=== PATIENT | female | born 1960 | race Caucasian/White ===

== ENCOUNTER 2017-10-04 00:09 | Day surgery (SDC) | payer OTHER ==
[~2017-10-04 00:09] MED LIST: AMOCLA875 PO; AMOX500 PO; ASPI81CH; BASAGLAR K100 UNIT/1 SC; Bactrim 400-801 EACH PO; Bactrim Ds Tab1 EACH PO; CEPH500 PO; CIPR500 PO; CLIN300 PO; CLOP75 PO; FURO20 PO; GLIP2.5ER; GLIP5 PO; HYDACE5 PO; HYDR1TAB94; INSULANI SC; INSULANPEN; INSULANPEN SC; LISI10; METF500; METF500 PO; NITR100 PO; Novolog Fl100 UNIT/1; PRAV10 PO; ROSI4; RXCEPH500 PO; RXHYDACE PO; SULTRIDS PO
[2018-08-30] MEDS ORDERED: PANT40 (12:44)
[2018-08-30] MEDS ORDERED: Keflex500 MG PO (15:29)
[2018-08-30] MEDS ORDERED: Bactrim Ds Tab1 EACH PO (15:29)
[2018-09-16] MEDS ORDERED: Bactrim Ds Tab1 EACH PO (18:39)
[2018-09-16] MEDS ORDERED: CEPH500 PO (18:39)
== END 2017-10-04 13:47 | disposition home or self-care (01) ==
LOC: HBO 00:09
DX: Z48.00 Encounter for change or removal of nonsurgical wound dressing (principal); E11.621 Type 2 diabetes mellitus with foot ulcer; L89.623 Pressure ulcer of left heel, stage 3; L97.512 Non-pressure chronic ulcer of other part of right foot with fat layer exposed; E11.40 Type 2 diabetes mellitus with diabetic neuropathy, unspecified; I10 Essential (primary) hypertension
CPT/HCPCS: 82947; G0277

== ENCOUNTER 2017-10-05 09:44 | Day surgery (SDC) | payer OTHER ==
[2018-08-30] MEDS ORDERED: PANT40 (12:44)
[2018-08-30] MEDS ORDERED: Keflex500 MG PO (15:29)
[2018-08-30] MEDS ORDERED: Bactrim Ds Tab1 EACH PO (15:29)
[2018-09-16] MEDS ORDERED: CEPH500 PO (18:39)
[2018-09-16] MEDS ORDERED: Bactrim Ds Tab1 EACH PO (18:39)
== END 2017-10-05 22:38 | disposition home or self-care (01) ==
LOC: HBO 09:44
PROC: 5A05221 Extracorporeal Hyperbaric Oxygenation, Continuous (ICD-10-PCS; principal; 2017-10-05)
DX: Z48.00 Encounter for change or removal of nonsurgical wound dressing (principal); E11.621 Type 2 diabetes mellitus with foot ulcer; E11.40 Type 2 diabetes mellitus with diabetic neuropathy, unspecified; L89.623 Pressure ulcer of left heel, stage 3; I10 Essential (primary) hypertension; L97.512 Non-pressure chronic ulcer of other part of right foot with fat layer exposed
CPT/HCPCS: 82947; G0277

== ENCOUNTER 2017-10-06 00:28 | Day surgery (SDC) | payer OTHER ==
[2018-08-30] MEDS ORDERED: PANT40 (12:44)
[2018-08-30] MEDS ORDERED: Bactrim Ds Tab1 EACH PO (15:29)
[2018-08-30] MEDS ORDERED: Keflex500 MG PO (15:29)
[2018-09-16] MEDS ORDERED: CEPH500 PO (18:39)
[2018-09-16] MEDS ORDERED: Bactrim Ds Tab1 EACH PO (18:39)
== END 2017-10-06 23:10 | disposition home or self-care (01) ==
LOC: HBO 00:28
PROC: 5A05221 Extracorporeal Hyperbaric Oxygenation, Continuous (ICD-10-PCS; principal; 2017-10-06)
DX: Z48.00 Encounter for change or removal of nonsurgical wound dressing (principal); E11.621 Type 2 diabetes mellitus with foot ulcer; E11.40 Type 2 diabetes mellitus with diabetic neuropathy, unspecified; L97.512 Non-pressure chronic ulcer of other part of right foot with fat layer exposed; L89.623 Pressure ulcer of left heel, stage 3; I10 Essential (primary) hypertension
CPT/HCPCS: 82947; G0277

== ENCOUNTER 2017-10-10 08:40 | Day surgery (SDC) | payer OTHER ==
[2018-08-30] MEDS ORDERED: PANT40 (12:44)
[2018-08-30] MEDS ORDERED: Keflex500 MG PO (15:29)
[2018-08-30] MEDS ORDERED: Bactrim Ds Tab1 EACH PO (15:29)
[2018-09-16] MEDS ORDERED: Bactrim Ds Tab1 EACH PO (18:39)
[2018-09-16] MEDS ORDERED: CEPH500 PO (18:39)
== END 2017-10-10 15:13 | disposition home or self-care (01) ==
LOC: WOUND 08:40
PROC: 0HBNXZZ Excision of Left Foot Skin, External Approach (ICD-10-PCS; principal; 2017-10-10)
DX: Z48.00 Encounter for change or removal of nonsurgical wound dressing (principal); E11.621 Type 2 diabetes mellitus with foot ulcer; L97.422 Non-pressure chronic ulcer of left heel and midfoot with fat layer exposed; L57.0 Actinic keratosis; E11.40 Type 2 diabetes mellitus with diabetic neuropathy, unspecified; I10 Essential (primary) hypertension; Z89.422 Acquired absence of other left toe(s); Z79.4 Long term (current) use of insulin
CPT/HCPCS: 82947; G0463

== ENCOUNTER 2017-10-10 11:21 | Day surgery (SDC) | payer OTHER ==
[2018-08-30] MEDS ORDERED: PANT40 (12:44)
[2018-08-30] MEDS ORDERED: Bactrim Ds Tab1 EACH PO (15:29)
[2018-08-30] MEDS ORDERED: Keflex500 MG PO (15:29)
[2018-09-16] MEDS ORDERED: Bactrim Ds Tab1 EACH PO (18:39)
[2018-09-16] MEDS ORDERED: CEPH500 PO (18:39)
== END 2017-10-10 13:19 | disposition home or self-care (01) ==
LOC: HBO 11:21
DX: Z48.00 Encounter for change or removal of nonsurgical wound dressing (principal); E08.40 Diabetes mellitus due to underlying condition with diabetic neuropathy, unspecified; L89.623 Pressure ulcer of left heel, stage 3; I10 Essential (primary) hypertension; L97.512 Non-pressure chronic ulcer of other part of right foot with fat layer exposed
CPT/HCPCS: 82947; G0277

== ENCOUNTER 2017-10-12 08:00 | Day surgery (SDC) | payer OTHER ==
[2018-08-30] MEDS ORDERED: PANT40 (12:44)
[2018-08-30] MEDS ORDERED: Keflex500 MG PO (15:29)
[2018-08-30] MEDS ORDERED: Bactrim Ds Tab1 EACH PO (15:29)
[2018-09-16] MEDS ORDERED: Bactrim Ds Tab1 EACH PO (18:39)
[2018-09-16] MEDS ORDERED: CEPH500 PO (18:39)
== END 2017-10-12 11:13 | disposition home or self-care (01) ==
LOC: HBO 08:00
DX: Z48.00 Encounter for change or removal of nonsurgical wound dressing (principal); E11.621 Type 2 diabetes mellitus with foot ulcer; L89.623 Pressure ulcer of left heel, stage 3; L97.512 Non-pressure chronic ulcer of other part of right foot with fat layer exposed; E11.40 Type 2 diabetes mellitus with diabetic neuropathy, unspecified; I10 Essential (primary) hypertension
CPT/HCPCS: 82947; G0277

== ENCOUNTER 2017-10-17 00:08 | Day surgery (SDC) | payer OTHER ==
[2018-08-30] MEDS ORDERED: PANT40 (12:44)
[2018-08-30] MEDS ORDERED: Bactrim Ds Tab1 EACH PO (15:29)
[2018-08-30] MEDS ORDERED: Keflex500 MG PO (15:29)
[2018-09-16] MEDS ORDERED: CEPH500 PO (18:39)
[2018-09-16] MEDS ORDERED: Bactrim Ds Tab1 EACH PO (18:39)
== END 2017-10-17 22:50 | disposition home or self-care (01) ==
LOC: HBO 00:08
PROC: 5A05221 Extracorporeal Hyperbaric Oxygenation, Continuous (ICD-10-PCS; principal; 2017-10-17)
DX: E11.621 Type 2 diabetes mellitus with foot ulcer (principal); E11.40 Type 2 diabetes mellitus with diabetic neuropathy, unspecified; L89.623 Pressure ulcer of left heel, stage 3; I10 Essential (primary) hypertension; L97.512 Non-pressure chronic ulcer of other part of right foot with fat layer exposed; Z48.00 Encounter for change or removal of nonsurgical wound dressing
CPT/HCPCS: 82947; G0277; G0463

== ENCOUNTER 2017-10-18 08:00 | Day surgery (SDC) | payer OTHER ==
[2018-08-30] MEDS ORDERED: PANT40 (12:44)
[2018-08-30] MEDS ORDERED: Bactrim Ds Tab1 EACH PO (15:29)
[2018-08-30] MEDS ORDERED: Keflex500 MG PO (15:29)
[2018-09-16] MEDS ORDERED: Bactrim Ds Tab1 EACH PO (18:39)
[2018-09-16] MEDS ORDERED: CEPH500 PO (18:39)
== END 2017-10-18 11:02 | disposition home or self-care (01) ==
LOC: HBO 08:00
PROC: 5A05221 Extracorporeal Hyperbaric Oxygenation, Continuous (ICD-10-PCS; principal; 2017-10-18)
DX: Z48.00 Encounter for change or removal of nonsurgical wound dressing (principal); E11.621 Type 2 diabetes mellitus with foot ulcer; E11.40 Type 2 diabetes mellitus with diabetic neuropathy, unspecified; L89.623 Pressure ulcer of left heel, stage 3; I10 Essential (primary) hypertension; L97.512 Non-pressure chronic ulcer of other part of right foot with fat layer exposed
CPT/HCPCS: 82947; G0277

== ENCOUNTER 2017-10-20 08:00 | Day surgery (SDC) | payer OTHER ==
[2018-08-30] MEDS ORDERED: PANT40 (12:44)
[2018-08-30] MEDS ORDERED: Bactrim Ds Tab1 EACH PO (15:29)
[2018-08-30] MEDS ORDERED: Keflex500 MG PO (15:29)
[2018-09-16] MEDS ORDERED: CEPH500 PO (18:39)
[2018-09-16] MEDS ORDERED: Bactrim Ds Tab1 EACH PO (18:39)
== END 2017-10-20 11:00 | disposition home or self-care (01) ==
LOC: HBO 08:00
PROC: 5A05221 Extracorporeal Hyperbaric Oxygenation, Continuous (ICD-10-PCS; principal; 2017-10-20)
DX: Z48.00 Encounter for change or removal of nonsurgical wound dressing (principal); E11.621 Type 2 diabetes mellitus with foot ulcer; E11.40 Type 2 diabetes mellitus with diabetic neuropathy, unspecified; L89.623 Pressure ulcer of left heel, stage 3; I10 Essential (primary) hypertension; L97.512 Non-pressure chronic ulcer of other part of right foot with fat layer exposed
CPT/HCPCS: 82947; G0277

== ENCOUNTER 2017-10-25 08:00 | Day surgery (SDC) | payer OTHER ==
[2018-08-30] MEDS ORDERED: PANT40 (12:44)
[2018-08-30] MEDS ORDERED: Bactrim Ds Tab1 EACH PO (15:29)
[2018-08-30] MEDS ORDERED: Keflex500 MG PO (15:29)
[2018-09-16] MEDS ORDERED: CEPH500 PO (18:39)
[2018-09-16] MEDS ORDERED: Bactrim Ds Tab1 EACH PO (18:39)
== END 2017-10-25 12:54 | disposition home or self-care (01) ==
LOC: HBO 08:00
PROC: 5A05221 Extracorporeal Hyperbaric Oxygenation, Continuous (ICD-10-PCS; principal; 2017-10-25)
DX: Z48.00 Encounter for change or removal of nonsurgical wound dressing (principal); E11.621 Type 2 diabetes mellitus with foot ulcer; E11.40 Type 2 diabetes mellitus with diabetic neuropathy, unspecified; L89.623 Pressure ulcer of left heel, stage 3; I10 Essential (primary) hypertension; L97.512 Non-pressure chronic ulcer of other part of right foot with fat layer exposed
CPT/HCPCS: 82947; G0277

== ENCOUNTER 2017-10-25 09:18 | Day surgery (SDC) | payer OTHER ==
[2018-08-30] MEDS ORDERED: PANT40 (12:44)
[2018-08-30] MEDS ORDERED: Keflex500 MG PO (15:29)
[2018-08-30] MEDS ORDERED: Bactrim Ds Tab1 EACH PO (15:29)
[2018-09-16] MEDS ORDERED: CEPH500 PO (18:39)
[2018-09-16] MEDS ORDERED: Bactrim Ds Tab1 EACH PO (18:39)
== END 2017-10-25 22:50 | disposition home or self-care (01) ==
LOC: WOUND 09:18
DX: Z48.00 Encounter for change or removal of nonsurgical wound dressing (principal); E11.621 Type 2 diabetes mellitus with foot ulcer; E11.40 Type 2 diabetes mellitus with diabetic neuropathy, unspecified; L89.623 Pressure ulcer of left heel, stage 3; I10 Essential (primary) hypertension; L97.512 Non-pressure chronic ulcer of other part of right foot with fat layer exposed
CPT/HCPCS: G0463

== ENCOUNTER 2017-10-27 08:00 | Day surgery (SDC) | payer OTHER ==
[2018-08-30] MEDS ORDERED: PANT40 (12:44)
[2018-08-30] MEDS ORDERED: Keflex500 MG PO (15:29)
[2018-08-30] MEDS ORDERED: Bactrim Ds Tab1 EACH PO (15:29)
[2018-09-16] MEDS ORDERED: Bactrim Ds Tab1 EACH PO (18:39)
[2018-09-16] MEDS ORDERED: CEPH500 PO (18:39)
== END 2017-10-27 11:41 | disposition home or self-care (01) ==
LOC: HBO 08:00
PROC: 5A05221 Extracorporeal Hyperbaric Oxygenation, Continuous (ICD-10-PCS; principal; 2017-10-27)
DX: Z48.00 Encounter for change or removal of nonsurgical wound dressing (principal); E11.621 Type 2 diabetes mellitus with foot ulcer; E11.40 Type 2 diabetes mellitus with diabetic neuropathy, unspecified; L89.623 Pressure ulcer of left heel, stage 3; I10 Essential (primary) hypertension; L97.512 Non-pressure chronic ulcer of other part of right foot with fat layer exposed
CPT/HCPCS: 82947; G0277

== ENCOUNTER 2017-11-01 07:35 | Day surgery (SDC) | payer OTHER ==
[2018-08-30] MEDS ORDERED: PANT40 (12:44)
[2018-08-30] MEDS ORDERED: Keflex500 MG PO (15:29)
[2018-08-30] MEDS ORDERED: Bactrim Ds Tab1 EACH PO (15:29)
[2018-09-16] MEDS ORDERED: Bactrim Ds Tab1 EACH PO (18:39)
[2018-09-16] MEDS ORDERED: CEPH500 PO (18:39)
== END 2017-11-01 23:01 | disposition home or self-care (01) ==
LOC: HBO 07:35
PROC: 5A05221 Extracorporeal Hyperbaric Oxygenation, Continuous (ICD-10-PCS; principal; 2017-11-01)
DX: Z48.00 Encounter for change or removal of nonsurgical wound dressing (principal); E11.621 Type 2 diabetes mellitus with foot ulcer; E11.40 Type 2 diabetes mellitus with diabetic neuropathy, unspecified; L89.623 Pressure ulcer of left heel, stage 3; I10 Essential (primary) hypertension; L97.512 Non-pressure chronic ulcer of other part of right foot with fat layer exposed
CPT/HCPCS: 82947; G0277

== ENCOUNTER 2017-11-02 10:05 | Day surgery (SDC) | payer OTHER ==
[2018-08-30] MEDS ORDERED: PANT40 (12:44)
[2018-08-30] MEDS ORDERED: Bactrim Ds Tab1 EACH PO (15:29)
[2018-08-30] MEDS ORDERED: Keflex500 MG PO (15:29)
[2018-09-16] MEDS ORDERED: CEPH500 PO (18:39)
[2018-09-16] MEDS ORDERED: Bactrim Ds Tab1 EACH PO (18:39)
== END 2017-11-02 12:53 | disposition home or self-care (01) ==
LOC: WOUND 10:05
PROC: 2W1TX6Z Compression of Left Foot using Pressure Dressing (ICD-10-PCS; principal; 2017-11-02)
DX: Z48.00 Encounter for change or removal of nonsurgical wound dressing (principal); E11.621 Type 2 diabetes mellitus with foot ulcer; E11.40 Type 2 diabetes mellitus with diabetic neuropathy, unspecified; I10 Essential (primary) hypertension; L97.512 Non-pressure chronic ulcer of other part of right foot with fat layer exposed; Z79.4 Long term (current) use of insulin

== ENCOUNTER 2017-11-03 00:50 | Day surgery (SDC) | payer OTHER ==
[2018-08-30] MEDS ORDERED: PANT40 (12:44)
[2018-08-30] MEDS ORDERED: Bactrim Ds Tab1 EACH PO (15:29)
[2018-08-30] MEDS ORDERED: Keflex500 MG PO (15:29)
[2018-09-16] MEDS ORDERED: CEPH500 PO (18:39)
[2018-09-16] MEDS ORDERED: Bactrim Ds Tab1 EACH PO (18:39)
== END 2017-11-03 22:43 | disposition home or self-care (01) ==
LOC: HBO 00:50
PROC: 5A05221 Extracorporeal Hyperbaric Oxygenation, Continuous (ICD-10-PCS; principal; 2017-11-03)
DX: Z48.00 Encounter for change or removal of nonsurgical wound dressing (principal); E11.621 Type 2 diabetes mellitus with foot ulcer; E11.40 Type 2 diabetes mellitus with diabetic neuropathy, unspecified; L89.623 Pressure ulcer of left heel, stage 3; I10 Essential (primary) hypertension; L97.512 Non-pressure chronic ulcer of other part of right foot with fat layer exposed
CPT/HCPCS: 82947; G0277

== ENCOUNTER 2017-11-14 15:58 | Inpatient (IN) | payer OTHER ==
[~2017-11-14] VITALS: Ht 177.8 cm; Wt 98.7 kg
[2017-11-14 17:17] LABS: BASOPHILS ABSOLUTE AUTO 0.04 K/mm3 (0.00-0.23); BASOPHILS PERCENT AUTO 0 % (0-2); EOSINOPHILS ABSOLUTE AUTO 0.12 K/mm3 (0.00-0.68); EOSINOPHILS PERCENT AUTO 1 % (0-6); Hematocrit 39.5 % (33.0-51.0); Hemoglobin 12.1 g/dL (11.5-16.0); IMMATURE GRAN ABSOLUTE AUTO 0.03 K/mm3 (0.00-0.10); IMMATURE GRAN PERCENT AUTO 0 % (0-1); LYMPHOCYTES ABSOLUTE AUTO 2.87 K/mm3 (0.84-5.20); LYMPHOCYTES PERCENT AUTO 23 % (21-46); MONOCYTES ABSOLUTE AUTO 0.62 K/mm3 (0.16-1.47); MONOCYTES PERCENT AUTO 5 % (4-13); Mean Corpuscular HGB 25.2 pg (26.0-34.0); Mean Corpuscular HGB Conc 30.6 g/dL (31.5-36.5); Mean Corpuscular Volume 82 fL (80-100); Mean Platelet Volume 8.6 fL (9.1-12.4); NEUTROPHILS ABSOLUTE AUTO 8.58 K/mm3 (1.96-9.15); NEUTROPHILS PERCENT AUTO 70 % (41-73); Platelet Count 424 K/mm3 (150-400); RDW Coefficient Variation 15.5 % (11.7-14.2); RDW Standard Deviation 46.6 fL (35.1-46.3); White Blood Cell Count 12.26 K/mm3 (4.00-11.30)
[2017-11-14 17:41] LABS: Alanine Aminotransfer (ALT/SGP 25 U/L (12-78); Albumin, Blood 3.5 g/dL (3.4-5.0); Albumin/Globulin Ratio 0.6 (0.8-1.8); Alk Phos 80 U/L (50-136); Anion Gap 8 mmol/L (6-16); Aspartate Aminotrans (AST/SGOT 19 U/L (12-37); Bilirubin, Total 0.4 mg/dL (0.1-1.0); Blood Urea Nitrogen 16 mg/dL (8-24); Bun/Creatinine Ratio 17.4 (12.0-20.0); CO2, Blood 29 mmol/L (21-32); Calcium, Blood 10.1 mg/dL (8.5-10.1); Chloride, Blood 99 mmol/L (98-108); Creatinine, Blood 0.92 mg/dL (0.40-1.00); Globulin, Blood 5.8 g/dL (2.2-4.0); Glomerular Filtration Rate >60 (60-); Glucose, Blood 110 mg/dL (70-99); Potassium, Blood 3.8 mmol/L (3.5-5.5); Sodium, Blood 136 mmol/L (136-145); Total Protein, Blood 9.3 g/dL (6.4-8.2)
[2017-11-14] MEDS ORDERED: [UNRECOGNIZED DRUG - CODE] SC (18:49)
[2017-11-16 05:28] LABS: BASOPHILS ABSOLUTE AUTO 0.05 K/mm3 (0.00-0.23); BASOPHILS PERCENT AUTO 1 % (0-2); EOSINOPHILS ABSOLUTE AUTO 0.29 K/mm3 (0.00-0.68); EOSINOPHILS PERCENT AUTO 4 % (0-6); Hematocrit 33.5 % (33.0-51.0); Hemoglobin 10.1 g/dL (11.5-16.0); IMMATURE GRAN ABSOLUTE AUTO 0.01 K/mm3 (0.00-0.10); IMMATURE GRAN PERCENT AUTO 0 % (0-1); LYMPHOCYTES ABSOLUTE AUTO 2.33 K/mm3 (0.84-5.20); LYMPHOCYTES PERCENT AUTO 33 % (21-46); MONOCYTES ABSOLUTE AUTO 0.42 K/mm3 (0.16-1.47); MONOCYTES PERCENT AUTO 6 % (4-13); Mean Corpuscular HGB 25.3 pg (26.0-34.0); Mean Corpuscular HGB Conc 30.1 g/dL (31.5-36.5); Mean Corpuscular Volume 84 fL (80-100); Mean Platelet Volume 8.7 fL (9.1-12.4); NEUTROPHILS ABSOLUTE AUTO 3.91 K/mm3 (1.96-9.15); NEUTROPHILS PERCENT AUTO 56 % (41-73); Platelet Count 320 K/mm3 (150-400); RDW Coefficient Variation 15.2 % (11.7-14.2); RDW Standard Deviation 46.5 fL (35.1-46.3); Red Blood Cell Count 3.99 M/mm3 (3.80-5.20); White Blood Cell Count 7.01 K/mm3 (4.00-11.30)
[2017-11-16 05:51] LABS: Anion Gap 7 mmol/L (6-16); Blood Urea Nitrogen 14 mg/dL (8-24); Bun/Creatinine Ratio 16.2 (12.0-20.0); CO2, Blood 27 mmol/L (21-32); Calcium, Blood 8.5 mg/dL (8.5-10.1); Chloride, Blood 107 mmol/L (98-108); Creatinine, Blood 0.87 mg/dL (0.40-1.00); Glomerular Filtration Rate >60 (60-); Glucose, Blood 101 mg/dL (70-99); Potassium, Blood 3.8 mmol/L (3.5-5.5); Sodium, Blood 141 mmol/L (136-145)
[2017-11-16 07:54] LABS: Vancomycin, Trough 15.4 ug/mL (5.0-10.0)
[2017-11-17 05:15] LABS: BASOPHILS ABSOLUTE AUTO 0.04 K/mm3 (0.00-0.23); BASOPHILS PERCENT AUTO 0 % (0-2); EOSINOPHILS ABSOLUTE AUTO 0.03 K/mm3 (0.00-0.68); EOSINOPHILS PERCENT AUTO 0 % (0-6); Hematocrit 28.6 % (33.0-51.0); Hemoglobin 8.6 g/dL (11.5-16.0); IMMATURE GRAN ABSOLUTE AUTO 0.04 K/mm3 (0.00-0.10); IMMATURE GRAN PERCENT AUTO 0 % (0-1); LYMPHOCYTES ABSOLUTE AUTO 2.23 K/mm3 (0.84-5.20); LYMPHOCYTES PERCENT AUTO 25 % (21-46); MONOCYTES ABSOLUTE AUTO 0.75 K/mm3 (0.16-1.47); MONOCYTES PERCENT AUTO 8 % (4-13); Mean Corpuscular HGB 25.3 pg (26.0-34.0); Mean Corpuscular HGB Conc 30.1 g/dL (31.5-36.5); Mean Corpuscular Volume 84 fL (80-100); Mean Platelet Volume 8.3 fL (9.1-12.4); NEUTROPHILS ABSOLUTE AUTO 5.94 K/mm3 (1.96-9.15); NEUTROPHILS PERCENT AUTO 66 % (41-73); Platelet Count 300 K/mm3 (150-400); RDW Coefficient Variation 14.8 % (11.7-14.2); RDW Standard Deviation 45.7 fL (35.1-46.3); White Blood Cell Count 9.03 K/mm3 (4.00-11.30)
[2017-11-18 07:24] LABS: BASOPHILS ABSOLUTE AUTO 0.03 K/mm3 (0.00-0.23); BASOPHILS PERCENT AUTO 0 % (0-2); EOSINOPHILS ABSOLUTE AUTO 0.15 K/mm3 (0.00-0.68); EOSINOPHILS PERCENT AUTO 2 % (0-6); Hematocrit 25.8 % (33.0-51.0); Hemoglobin 7.8 g/dL (11.5-16.0); IMMATURE GRAN ABSOLUTE AUTO 0.02 K/mm3 (0.00-0.10); IMMATURE GRAN PERCENT AUTO 0 % (0-1); LYMPHOCYTES ABSOLUTE AUTO 2.05 K/mm3 (0.84-5.20); LYMPHOCYTES PERCENT AUTO 25 % (21-46); MONOCYTES ABSOLUTE AUTO 0.76 K/mm3 (0.16-1.47); MONOCYTES PERCENT AUTO 9 % (4-13); Mean Corpuscular HGB 25.2 pg (26.0-34.0); Mean Corpuscular HGB Conc 30.2 g/dL (31.5-36.5); Mean Corpuscular Volume 84 fL (80-100); Mean Platelet Volume 8.6 fL (9.1-12.4); NEUTROPHILS ABSOLUTE AUTO 5.08 K/mm3 (1.96-9.15); NEUTROPHILS PERCENT AUTO 63 % (41-73); Platelet Count 260 K/mm3 (150-400); RDW Coefficient Variation 14.9 % (11.7-14.2); RDW Standard Deviation 45.5 fL (35.1-46.3); Red Blood Cell Count 3.09 M/mm3 (3.80-5.20); White Blood Cell Count 8.09 K/mm3 (4.00-11.30)
[2017-11-18 07:42] LABS: Vancomycin, Trough 13.5 ug/mL (5.0-10.0)
[2017-11-18 07:44] LABS: Anion Gap 6 mmol/L (6-16); Blood Urea Nitrogen 7 mg/dL (8-24); Bun/Creatinine Ratio 8.8 (12.0-20.0); CO2, Blood 31 mmol/L (21-32); Chloride, Blood 102 mmol/L (98-108); Glomerular Filtration Rate >60 (60-); Glucose, Blood 91 mg/dL (70-99); Potassium, Blood 3.4 mmol/L (3.5-5.5); Sodium, Blood 139 mmol/L (136-145)
[2017-11-19 05:47] LABS: BASOPHILS ABSOLUTE AUTO 0.03 K/mm3 (0.00-0.23); BASOPHILS PERCENT AUTO 0 % (0-2); EOSINOPHILS ABSOLUTE AUTO 0.21 K/mm3 (0.00-0.68); EOSINOPHILS PERCENT AUTO 3 % (0-6); Hematocrit 24.4 % (33.0-51.0); Hemoglobin 7.3 g/dL (11.5-16.0); IMMATURE GRAN ABSOLUTE AUTO 0.01 K/mm3 (0.00-0.10); IMMATURE GRAN PERCENT AUTO 0 % (0-1); LYMPHOCYTES ABSOLUTE AUTO 2.67 K/mm3 (0.84-5.20); LYMPHOCYTES PERCENT AUTO 36 % (21-46); MONOCYTES ABSOLUTE AUTO 0.56 K/mm3 (0.16-1.47); MONOCYTES PERCENT AUTO 7 % (4-13); Mean Corpuscular HGB 25.1 pg (26.0-34.0); Mean Corpuscular HGB Conc 29.9 g/dL (31.5-36.5); Mean Corpuscular Volume 84 fL (80-100); Mean Platelet Volume 8.6 fL (9.1-12.4); NEUTROPHILS ABSOLUTE AUTO 4.05 K/mm3 (1.96-9.15); NEUTROPHILS PERCENT AUTO 54 % (41-73); Platelet Count 254 K/mm3 (150-400); RDW Standard Deviation 45.5 fL (35.1-46.3); Red Blood Cell Count 2.91 M/mm3 (3.80-5.20); White Blood Cell Count 7.53 K/mm3 (4.00-11.30)
[2017-11-19 06:04] LABS: Anion Gap 5 mmol/L (6-16); Blood Urea Nitrogen 7 mg/dL (8-24); Bun/Creatinine Ratio 9.7 (12.0-20.0); CO2, Blood 32 mmol/L (21-32); Calcium, Blood 8.2 mg/dL (8.5-10.1); Chloride, Blood 102 mmol/L (98-108); Creatinine, Blood 0.72 mg/dL (0.40-1.00); Glomerular Filtration Rate >60 (60-); Glucose, Blood 55 mg/dL (70-99); Potassium, Blood 3.4 mmol/L (3.5-5.5); Sodium, Blood 139 mmol/L (136-145)
[2017-11-20 04:58] LABS: BASOPHILS ABSOLUTE AUTO 0.04 K/mm3 (0.00-0.23); BASOPHILS PERCENT AUTO 1 % (0-2); EOSINOPHILS ABSOLUTE AUTO 0.28 K/mm3 (0.00-0.68); EOSINOPHILS PERCENT AUTO 3 % (0-6); Hematocrit 24.4 % (33.0-51.0); Hemoglobin 7.4 g/dL (11.5-16.0); IMMATURE GRAN ABSOLUTE AUTO 0.03 K/mm3 (0.00-0.10); IMMATURE GRAN PERCENT AUTO 0 % (0-1); LYMPHOCYTES ABSOLUTE AUTO 1.98 K/mm3 (0.84-5.20); LYMPHOCYTES PERCENT AUTO 24 % (21-46); MONOCYTES ABSOLUTE AUTO 0.54 K/mm3 (0.16-1.47); MONOCYTES PERCENT AUTO 7 % (4-13); Mean Corpuscular HGB 25.3 pg (26.0-34.0); Mean Corpuscular HGB Conc 30.3 g/dL (31.5-36.5); Mean Corpuscular Volume 84 fL (80-100); Mean Platelet Volume 8.6 fL (9.1-12.4); NEUTROPHILS ABSOLUTE AUTO 5.44 K/mm3 (1.96-9.15); NEUTROPHILS PERCENT AUTO 65 % (41-73); Platelet Count 285 K/mm3 (150-400); RDW Coefficient Variation 14.9 % (11.7-14.2); RDW Standard Deviation 45.2 fL (35.1-46.3); Red Blood Cell Count 2.92 M/mm3 (3.80-5.20); White Blood Cell Count 8.31 K/mm3 (4.00-11.30)
[2017-11-20 05:18] LABS: Anion Gap 6 mmol/L (6-16); Blood Urea Nitrogen 6 mg/dL (8-24); Bun/Creatinine Ratio 8.4 (12.0-20.0); CO2, Blood 31 mmol/L (21-32); Calcium, Blood 8.2 mg/dL (8.5-10.1); Chloride, Blood 102 mmol/L (98-108); Creatinine, Blood 0.71 mg/dL (0.40-1.00); Glomerular Filtration Rate >60 (60-); Glucose, Blood 142 mg/dL (70-99); Potassium, Blood 3.8 mmol/L (3.5-5.5); Sodium, Blood 139 mmol/L (136-145)
[2017-11-21] MEDS ORDERED: Diastat2.5 MG PO (10:56)
[2017-11-21] MEDS ORDERED: ENOX40I SC (10:57)
[2017-11-21] MEDS ORDERED: DOCU100 PO (10:59)
[2017-11-21] MEDS ORDERED: FERRETTS325 MG PO (10:59)
[2017-11-21] MEDS ORDERED: ALBU3IS NEB (11:01)
[2017-11-21] MEDS ORDERED: LISI5 PO (11:02)
[2017-11-21] MEDS ORDERED: Milk Of Ma400 MG/5 M PO (11:02)
[2017-11-21] MEDS ORDERED: PANT40 PO (11:02)
[2017-11-21] MEDS ORDERED: Percocet 10-321 EACH PO (11:03)
[2017-11-21] MEDS ORDERED: K-Dur20 MEQ PO (11:04)
[2017-11-21] MEDS ORDERED: SENN187 PO (11:05)
[2017-11-21] MEDS ORDERED: MIRALAX17 GM PO (11:05)
[2017-11-21] MEDS ORDERED: Desyrel50 MG PO (11:06)
[2017-11-21 19:37] LABS: Vancomycin, Trough 17.2 ug/mL (5.0-10.0)
[2018-08-30] MEDS ORDERED: PANT40 (12:44)
[2018-08-30] MEDS ORDERED: Keflex500 MG PO (15:29)
[2018-08-30] MEDS ORDERED: Bactrim Ds Tab1 EACH PO (15:29)
[2018-09-16] MEDS ORDERED: CEPH500 PO (18:39)
[2018-09-16] MEDS ORDERED: Bactrim Ds Tab1 EACH PO (18:39)
== END 2017-11-22 12:19 | DRG 616 ==
LOC: ER 15:58 → MEDS 18:19 → ENPENDDIS 11-21 09:30 → MEDS 11-22 12:19
PROVIDERS: Family Medicine; Internal Medicine; Orthopaedic Surgery; Physician Assistant
PROC: 3E0234Z Introduction of Serum, Toxoid and Vaccine into Muscle, Percutaneous Approach (ICD-10-PCS; 2017-11-14)
PROC: 0Y6J0Z3 Detachment at Left Lower Leg, Low, Open Approach (ICD-10-PCS; principal; 2017-11-16 12:30)
DX: E11.69 Type 2 diabetes mellitus with other specified complication (principal); J96.01 Acute respiratory failure with hypoxia; M86.9 Osteomyelitis, unspecified; L03.116 Cellulitis of left lower limb; L02.612 Cutaneous abscess of left foot; E11.40 Type 2 diabetes mellitus with diabetic neuropathy, unspecified; E11.51 Type 2 diabetes mellitus with diabetic peripheral angiopathy without gangrene; E11.610 Type 2 diabetes mellitus with diabetic neuropathic arthropathy; Z23 Encounter for immunization; I10 Essential (primary) hypertension; E87.6 Hypokalemia; E66.9 Obesity, unspecified; K59.00 Constipation, unspecified; R09.02 Hypoxemia; Z68.31 Body mass index [BMI] 31.0-31.9, adult
CPT/HCPCS: 36415; 36416; 71260; 73590; 73630; 80048; 80053; 80202; 82947; 83036; 83605; 83735; 85025; 85379; 85651; 86140; 87070; 87075; 87076; 87077; 87147; 87186; 87205; 88307; 93005; 93010; 93970; 94640; 94760; 94761; 96365; 96367; 96368; 97110; 97162; 97530; 99285; G8978; G8979; J0295; J1170; J1650; J1815; J2250; J2270; J2274; J2405; J2765; J3010; J3370; J7030; J7050; J7120; Q9967

== ENCOUNTER 2018-01-18 08:40 | Day surgery (SDC) | payer OTHER ==
[~2018-01-18] VITALS: Ht 177.8 cm; Wt 99.8 kg
[~2018-01-18 08:40] MED LIST changes: +ALBU3IS NEB; +DOCU100 PO; +Desyrel50 MG PO; +Diastat2.5 MG PO; +ENOX40I SC; +FERRETTS325 MG PO; +K-Dur20 MEQ PO; +LISI5 PO; +MIRALAX17 GM PO; +Milk Of Ma400 MG/5 M PO; +PANT40 PO; +Percocet 10-321 EACH PO; +SENN187 PO; +[UNRECOGNIZED DRUG - CODE] SC
== END 2018-01-18 12:08 | disposition home or self-care (01) ==
LOC: ORSCMMR 08:40 → ORD 10:00 → ORSCMMR 10:00
PROVIDERS: Internal Medicine Gastroenterology
PROC: 0DJD8ZZ Inspection of Lower Intestinal Tract, Via Natural or Artificial Opening Endoscopic (ICD-10-PCS; principal; 2018-01-18 10:00)
DX: Z12.11 Encounter for screening for malignant neoplasm of colon (principal); Z86.010 Personal history of colon polyps; E11.9 Type 2 diabetes mellitus without complications; Z79.82 Long term (current) use of aspirin; Z79.4 Long term (current) use of insulin; Z79.899 Other long term (current) drug therapy; D64.9 Anemia, unspecified; I73.9 Peripheral vascular disease, unspecified
CPT/HCPCS: 82947; J7120

== ENCOUNTER → 2018-12-25 | Outpatient (CLI) | payer OTHER ==
[~2018-12-25] MED LIST changes: +Keflex500 MG PO; +PANT40
== END | disposition home or self-care (01) ==
LOC: LAB SHORT 09:12 → LAB 09:12
DX: L03.111 Cellulitis of right axilla (principal)
CPT/HCPCS: 87070; 87077; 87147; 87186; 87205

== ENCOUNTER 2019-03-26 09:52 | Inpatient (IN) | payer OTHER ==
[~2019-03-26] VITALS: Ht 177.8 cm; Wt 104.3 kg
[~2019-03-26 09:52] MED LIST changes: -ASPI81CH; +ASPI81CH PO
[2019-03-26 10:52] LABS: BASOPHILS ABSOLUTE AUTO 0.03 K/mm3 (0.00-0.23); BASOPHILS PERCENT AUTO 0 % (0-2); EOSINOPHILS ABSOLUTE AUTO 0.18 K/mm3 (0.00-0.68); EOSINOPHILS PERCENT AUTO 2 % (0-6); Hematocrit 41.1 % (33.0-51.0); Hemoglobin 12.4 g/dL (11.5-16.0); IMMATURE GRAN ABSOLUTE AUTO 0.03 K/mm3 (0.00-0.10); IMMATURE GRAN PERCENT AUTO 0 % (0-1); LYMPHOCYTES ABSOLUTE AUTO 1.68 K/mm3 (0.84-5.20); LYMPHOCYTES PERCENT AUTO 19 % (21-46); MONOCYTES PERCENT AUTO 6 % (4-13); Mean Corpuscular HGB 25.3 pg (26.0-34.0); Mean Corpuscular HGB Conc 30.2 g/dL (31.5-36.5); Mean Corpuscular Volume 84 fL (80-100); Mean Platelet Volume 8.8 fL (9.1-12.4); NEUTROPHILS ABSOLUTE AUTO 6.45 K/mm3 (1.96-9.15); NEUTROPHILS PERCENT AUTO 73 % (41-73); Platelet Count 356 K/mm3 (150-400); RDW Coefficient Variation 15.9 % (11.7-14.2); RDW Standard Deviation 47.8 fL (35.1-46.3); Red Blood Cell Count 4.91 M/mm3 (3.80-5.20); White Blood Cell Count 8.87 K/mm3 (4.00-11.30)
[2019-03-26 11:21] LABS: Alanine Aminotransfer (ALT/SGP 50 U/L (12-78); Albumin, Blood 3.6 g/dL (3.4-5.0); Albumin/Globulin Ratio 0.8 (0.8-1.8); Alk Phos 88 U/L (50-136); Anion Gap 6 mmol/L (6-16); Aspartate Aminotrans (AST/SGOT 40 U/L (12-37); Bilirubin, Total 0.3 mg/dL (0.1-1.0); Blood Urea Nitrogen 9 mg/dL (8-24); Bun/Creatinine Ratio 11.7 (12.0-20.0); CO2, Blood 27 mmol/L (21-32); Chloride, Blood 105 mmol/L (98-108); Creatinine, Blood 0.77 mg/dL (0.40-1.00); Globulin, Blood 4.8 g/dL (2.2-4.0); Glomerular Filtration Rate >60 (60-); Glucose, Blood 122 mg/dL (70-99); Sodium, Blood 138 mmol/L (136-145); Total Protein, Blood 8.4 g/dL (6.4-8.2)
[2019-03-26] MEDS ORDERED: MAGNESIUM250 MG PO (12:38)
[2019-03-26] MEDS ORDERED: FURO20 PO (12:38)
[2019-03-26] MEDS ORDERED: BASAGLAR K100 UNIT/1 SC (12:39)
[2019-03-26] MEDS ORDERED: Humalog Mi100 UNIT/4 SC (12:39)
[2019-03-26] MEDS ORDERED: Ferrous Sulfat325 M2 PO (12:39)
[2019-03-26] MEDS ORDERED: Hair, Skin & N1 EACH PO (12:40)
--- NOTE | 2019-03-26 17:40 | NUR ---
PATIENT ADMITTED FROM ER THIS SHIFT. SHE IS ALERT AND ORIENTED . PATIENT HAS DIABETIC ULCER TO PAD OF RIGHT FOOT. SHE IS A LEFT BKA. WOUND IS OPEN TO AIR. DOCTOR MAGGIE CONSULTED. PATIENT IS ABLE TO EXPRESS ANY NEEDS AND IS AWARE OF HER LIMITATIONS. REPORTS NO PAIN AT THIS TIME. CALL LIGHT WITHIN REACH.
--- NOTE | 2019-03-26 23:41 | NUR ---
PT DID NOT CALL NURSING FOR ASSIST TO BSC AND PUT WEIGHT ON RIGHT FOOT WHICH RESULTED IN BLEEDING TO PLANTAR SITE OF WOUND. THIS NURSE CLEANSED FOOT UP AND APPLIED NON ADHESIVE DRESSING WITH COBAN WRAP. PTS BED ALARM APPLIED.
[2019-03-27 05:03] LABS: BASOPHILS ABSOLUTE AUTO 0.04 K/mm3 (0.00-0.23); BASOPHILS PERCENT AUTO 1 % (0-2); EOSINOPHILS ABSOLUTE AUTO 0.26 K/mm3 (0.00-0.68); EOSINOPHILS PERCENT AUTO 4 % (0-6); Hematocrit 35.6 % (33.0-51.0); Hemoglobin 10.7 g/dL (11.5-16.0); IMMATURE GRAN ABSOLUTE AUTO 0.02 K/mm3 (0.00-0.10); IMMATURE GRAN PERCENT AUTO 0 % (0-1); LYMPHOCYTES ABSOLUTE AUTO 2.95 K/mm3 (0.84-5.20); LYMPHOCYTES PERCENT AUTO 40 % (21-46); MONOCYTES PERCENT AUTO 8 % (4-13); Mean Corpuscular HGB 25.3 pg (26.0-34.0); Mean Corpuscular HGB Conc 30.1 g/dL (31.5-36.5); Mean Corpuscular Volume 84 fL (80-100); Mean Platelet Volume 8.8 fL (9.1-12.4); NEUTROPHILS ABSOLUTE AUTO 3.44 K/mm3 (1.96-9.15); NEUTROPHILS PERCENT AUTO 47 % (41-73); Platelet Count 292 K/mm3 (150-400); RDW Coefficient Variation 15.9 % (11.7-14.2); Red Blood Cell Count 4.23 M/mm3 (3.80-5.20); White Blood Cell Count 7.31 K/mm3 (4.00-11.30)
[2019-03-27 05:25] LABS: Alanine Aminotransfer (ALT/SGP 37 U/L (12-78); Albumin, Blood 2.9 g/dL (3.4-5.0); Albumin/Globulin Ratio 0.7 (0.8-1.8); Alk Phos 69 U/L (50-136); Anion Gap 5 mmol/L (6-16); Aspartate Aminotrans (AST/SGOT 31 U/L (12-37); Bilirubin, Total 0.3 mg/dL (0.1-1.0); Blood Urea Nitrogen 9 mg/dL (8-24); Bun/Creatinine Ratio 10.1 (12.0-20.0); CO2, Blood 28 mmol/L (21-32); Calcium, Blood 8.6 mg/dL (8.5-10.1); Chloride, Blood 109 mmol/L (98-108); Creatinine, Blood 0.89 mg/dL (0.40-1.00); Globulin, Blood 4.1 g/dL (2.2-4.0); Glomerular Filtration Rate >60 (60-); Glucose, Blood 158 mg/dL (70-99); Magnesium, Blood 2.2 mg/dL (1.6-2.4); Potassium, Blood 4.1 mmol/L (3.5-5.5); Sodium, Blood 142 mmol/L (136-145)
--- NOTE | 2019-03-27 05:48 | NUR ---
SHIFT SUMMARY: PT RESTED COMFORTABLY ALL SHIFT. PTS RIGHT FOOT DRESSING DRY AND INTACT (APPLIED AFTER PATIENT BORE WEIGHT ON FOOT WITHOUT CALLING FOR NURSING ASSISTANCE--BED ALARM APPLIED REST OF NIGHT). PT ALERT AND ORIENTED X 4. PT ATE HS SNACK LAST NIGHT. PT VOICED THAT AT TIMES SHE IS NON COMPLIANT WITH FOLLOWING DIABETIC DIET AND EATS WHATS SHE DESIRES (PT TAUGHT NEED TO FOLLOW DIABETIC DIET WITH ACKNOWLEDGEMENT NOTED). PT MAINTAINED IN CONTACT PRECAUTIONS. PT DENIES PAIN OR NAUSEA. PTS BED LOW POSITION, CALL LIGHT AT SIDE.
--- NOTE | 2019-03-27 17:29 | NUR ---
SHIFT SUMMARY 1 PERSON ASSIST UP TO BSC OR W/C TO TRANSPORT IN TO BATHROOM FOR SHOWER THIS MORNING. REPORTED NO BM SINCE TUESDAY. SENNA GIVEN AND HAS HAD 3 BMS SINCE. DRESSING APPLIED AFTER SHOWER WITH SANTYL APPLIED TO WOUND BED PER DR. MAE ORDERS.
[2019-03-28 05:05] LABS: BASOPHILS ABSOLUTE AUTO 0.04 K/mm3 (0.00-0.23); BASOPHILS PERCENT AUTO 1 % (0-2); EOSINOPHILS ABSOLUTE AUTO 0.27 K/mm3 (0.00-0.68); EOSINOPHILS PERCENT AUTO 3 % (0-6); Hematocrit 34.7 % (33.0-51.0); Hemoglobin 10.5 g/dL (11.5-16.0); IMMATURE GRAN ABSOLUTE AUTO 0.03 K/mm3 (0.00-0.10); IMMATURE GRAN PERCENT AUTO 0 % (0-1); LYMPHOCYTES ABSOLUTE AUTO 2.68 K/mm3 (0.84-5.20); LYMPHOCYTES PERCENT AUTO 32 % (21-46); MONOCYTES ABSOLUTE AUTO 0.48 K/mm3 (0.16-1.47); MONOCYTES PERCENT AUTO 6 % (4-13); Mean Corpuscular HGB 24.7 pg (26.0-34.0); Mean Corpuscular HGB Conc 30.3 g/dL (31.5-36.5); Mean Corpuscular Volume 82 fL (80-100); NEUTROPHILS ABSOLUTE AUTO 4.84 K/mm3 (1.96-9.15); NEUTROPHILS PERCENT AUTO 58 % (41-73); Platelet Count 314 K/mm3 (150-400); RDW Coefficient Variation 15.9 % (11.7-14.2); RDW Standard Deviation 46.7 fL (35.1-46.3); Red Blood Cell Count 4.25 M/mm3 (3.80-5.20); White Blood Cell Count 8.34 K/mm3 (4.00-11.30)
[2019-03-28 05:26] LABS: Alanine Aminotransfer (ALT/SGP 33 U/L (12-78); Albumin, Blood 2.9 g/dL (3.4-5.0); Albumin/Globulin Ratio 0.7 (0.8-1.8); Alk Phos 70 U/L (50-136); Anion Gap 8 mmol/L (6-16); Aspartate Aminotrans (AST/SGOT 18 U/L (12-37); Bilirubin, Total 0.3 mg/dL (0.1-1.0); Blood Urea Nitrogen 12 mg/dL (8-24); Bun/Creatinine Ratio 13.3 (12.0-20.0); CO2, Blood 26 mmol/L (21-32); Calcium, Blood 8.7 mg/dL (8.5-10.1); Chloride, Blood 104 mmol/L (98-108); Creatinine, Blood 0.91 mg/dL (0.40-1.00); Glomerular Filtration Rate >60 (60-); Glucose, Blood 235 mg/dL (70-99); Sodium, Blood 138 mmol/L (136-145); Total Protein, Blood 6.9 g/dL (6.4-8.2)
--- NOTE | 2019-03-28 05:45 | NUR ---
FIELD INSTALLER SUMMARY NO ACUTE CHANGES THIS SHIFT. PT AAOX4 AND PLEASANT. DENIES PAIN. DRESSING ON R FOOT C/D/I. NEW IV PLACED ON LFA, RUNNING ABX. VSS, WILL CONTINUE TO MONITOR.
[2019-03-28] MEDS ORDERED: GLIP5 PO (15:34)
[2019-03-28] MEDS ORDERED: SANTYL30 GM TOP (15:37)
[2019-03-28] MEDS ORDERED: Cleocin HCl300 MG PO (15:38)
--- NOTE | 2019-03-28 16:31 | NUR ---
DISCHARGE INSTRCUCTIONS COMPLETED AND DISCUSSED WITH PT EXPRESSING UNDERSTANDING. SCRIPTS FAXED TO [facility]. TO [facility] VIA W/C.
== END 2019-03-28 16:29 | disposition home health service (06) | DRG 638 ==
LOC: ER 09:52 → ERHOLD 10:52 → MEDS 10:52
PROVIDERS: Emergency Medicine; ADMIT Internal Medicine
DX: E11.621 Type 2 diabetes mellitus with foot ulcer (principal); L03.115 Cellulitis of right lower limb; Z79.4 Long term (current) use of insulin; E11.51 Type 2 diabetes mellitus with diabetic peripheral angiopathy without gangrene; Z89.512 Acquired absence of left leg below knee; E78.5 Hyperlipidemia, unspecified; Z79.84 Long term (current) use of oral hypoglycemic drugs; A49.02 Methicillin resistant Staphylococcus aureus infection, unspecified site; E11.59 Type 2 diabetes mellitus with other circulatory complications; L97.511 Non-pressure chronic ulcer of other part of right foot limited to breakdown of skin
CPT/HCPCS: 36415; 73620; 80053; 82947; 83036; 83605; 83735; 85025; 87040; 87070; 87077; 87147; 87186; 87205; 99284-25; J1650; J2543; J3370; J7050

== ENCOUNTER 2019-05-13 10:26 | Emergency (ER) | payer OTHER ==
[~2019-05-13] VITALS: Ht 177.8 cm; Wt 104.3 kg
[~2019-05-13 10:26] MED LIST changes: +Cleocin HCl300 MG PO; +Ferrous Sulfat325 M2 PO; +Hair, Skin & N1 EACH PO; +Humalog Mi100 UNIT/4 SC; +MAGNESIUM250 MG PO; +SANTYL30 GM TOP
[2019-05-13] MEDS ORDERED: INSULANPEN SC (11:13)
[2019-05-13 11:43] LABS: BASOPHILS ABSOLUTE AUTO 0.03 K/mm3 (0.00-0.23); BASOPHILS PERCENT AUTO 0 % (0-2); EOSINOPHILS PERCENT AUTO 0 % (0-6); Hematocrit 37.9 % (33.0-51.0); Hemoglobin 11.7 g/dL (11.5-16.0); IMMATURE GRAN ABSOLUTE AUTO 0.04 K/mm3 (0.00-0.10); IMMATURE GRAN PERCENT AUTO 0 % (0-1); LYMPHOCYTES ABSOLUTE AUTO 1.46 K/mm3 (0.84-5.20); LYMPHOCYTES PERCENT AUTO 14 % (21-46); MONOCYTES ABSOLUTE AUTO 0.47 K/mm3 (0.16-1.47); MONOCYTES PERCENT AUTO 4 % (4-13); Mean Corpuscular HGB 25.2 pg (26.0-34.0); Mean Corpuscular HGB Conc 30.9 g/dL (31.5-36.5); Mean Corpuscular Volume 82 fL (80-100); Mean Platelet Volume 9.3 fL (9.1-12.4); NEUTROPHILS ABSOLUTE AUTO 8.85 K/mm3 (1.96-9.15); NEUTROPHILS PERCENT AUTO 82 % (41-73); Platelet Count 244 K/mm3 (150-400); RDW Coefficient Variation 16.6 % (11.7-14.2); RDW Standard Deviation 49.2 fL (35.1-46.3); Red Blood Cell Count 4.64 M/mm3 (3.80-5.20); White Blood Cell Count 10.85 K/mm3 (4.00-11.30)
[2019-05-13 11:59] LABS: Albumin, Blood 3.1 g/dL (3.4-5.0); Albumin/Globulin Ratio 0.6 (0.8-1.8); Bilirubin, Total 0.6 mg/dL (0.1-1.0); Bun/Creatinine Ratio 15.5 (12.0-20.0); Calcium, Blood 9.1 mg/dL (8.5-10.1); Creatinine, Blood 1.03 mg/dL (0.40-1.00); Globulin, Blood 5.6 g/dL (2.2-4.0); International Normalized Ratio 1.07; Potassium, Blood 4.5 mmol/L (3.5-5.5); Prothrombin Time Results 11.3 Sec (9.7-11.5); Total Protein, Blood 8.7 g/dL (6.4-8.2)
[2019-05-13] MEDS ORDERED: Keflex500 MG PO (14:27)
[2019-05-13] MEDS ORDERED: Bactrim Ds Tab1 EACH PO (14:27)
== END 2019-05-13 15:24 | disposition home or self-care (01) ==
LOC: ER 10:26
PROVIDERS: Emergency Medicine
DX: L03.115 Cellulitis of right lower limb (principal); E11.621 Type 2 diabetes mellitus with foot ulcer; L97.519 Non-pressure chronic ulcer of other part of right foot with unspecified severity; E11.65 Type 2 diabetes mellitus with hyperglycemia; E11.40 Type 2 diabetes mellitus with diabetic neuropathy, unspecified; E78.5 Hyperlipidemia, unspecified; Z88.8 Allergy status to other drugs, medicaments and biological substances; Z79.899 Other long term (current) drug therapy; Z79.82 Long term (current) use of aspirin; Z79.4 Long term (current) use of insulin
CPT/HCPCS: 36415; 73701; 80053; 83605; 83735; 84145; 85025; 85610; 85730; 87040; 87077; 87186; 96365-59; 96366-59; 99284-25; J3370; J7030; J7050; Q9967

== ENCOUNTER 2019-05-15 09:12 | Day surgery (SDC) | payer OTHER ==
[~2019-05-15] VITALS: Ht 177.8 cm; Wt 100.0 kg
[2019-05-15] MEDS ORDERED: TRAZ50 PO (09:54)
--- NOTE | 2019-05-15 10:06 | NUR ---
Pt has not bathed in a few day. Songe bath given with emphysis on the bilat groin access sites. Pt lungs clear, heart regular. Falled iv start left upper arm. Pts' daughter Kirill Lainey [phone].
--- NOTE | 2019-05-15 10:34 | NUR ---
Dr. Walters reviewd hx with patient.
--- NOTE | 2019-05-15 16:00 | NUR ---
PT [facility]. PT A/O. PT HAS DRESSING TO RIGHT FOOT WHICH PT REPORTS HAVING A SORE ON THAT FOOT. DRESSING APPEARS CLEAN AND DRY AT THIS TIME. PT HAS GROIN SITE TO LEFT GROIN THAT DOES NOT APPEAR TO HAVE ANY BRUISING, BLEEDING AND IS SOFT TO PALPATION. 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 PPP TO L FOOT. SPOKE WITH DR BARNES WHO REPORTS PT MAY STAY TONIGHT AND GO HOME IN AM SHE LIVES ALONE. PT HAS DISCOLORATION TO RLE NORMAL FOR PT AT THIS TIME "IT'S CELLULITIS". SPEECH CLEAR.
--- NOTE | 2019-05-15 18:07 | NUR ---
PT REMAINS A/O. PT LEFT GROIN SITE CONTINUES TO APPEAR WNL, SOFT NON-TENDER. PT BEEN ELEVATING HOB SLOWLY. PT ATE DINNER WELL. WILL REPORT TO ONCOMING NURSE. BEEN DISCUSSING PT WITH LOOM CHANGEOVER OPERATOR LULY.
--- NOTE | 2019-05-15 18:17 | NUR ---
PT BEEN ASSISTED WITH ADL'S PRN.
--- NOTE | 2019-05-15 22:40 | NUR ---
PATIENT LAYING IN BED GROINING SITE INTACT AND SOFT. SLIGHTLY TENDER TO LIGHT PALPATATION. PATIENT DENIES ANY PAIN.
--- NOTE | 2019-05-16 05:16 | NUR ---
PATIENT LAYING IN BED THROUGH THE NIGHT. PATIENT USING BEDPAN. COMPLAINS OF TENDERNESS IN LEFT GROINING SITE, SITE SOFT AND INTACT. PATIENT HAS WOUND TO RIGHT FOOT. RIGHT LOWER LED RED AND WARM. PATIENT DENIES ANY PAIN THROUGH.
--- NOTE | 2019-05-16 07:31 | NUR ---
NURSING PCU DAYSHIFT: Assumed care of pt at approx 0700. A/O, pleasant, cooperative w/care. C/O RLE pain r/t wound, chronic per pt, denies need for medication treatment. L BKA, repositioned w/assistance this a.m., able to turn independently in bed. L groin site from peripheral previous day, site is soft w/no bleed or hematoma noted. Dressing to R foot, changed by HH 2x/week, dressing intact, LE red and warm. Tele in place, NSR, no c/o CP/pressure, SBP 90's, no noted edema. Respiratory status stable on RA, denies dyspnea, no noted cough. GI/ WNL. PIV x1, s/l. Pt denies any current needs. Plan for discharge home as pt was ext recovery from previous day. Pt is anticipating discharge and is denying any dc assistance at this time. Will arrange transportation through [facility] for approx 0900 per pt req. No s/s of acute distress, cont to monitor until discharge is complete.
== END 2019-05-16 09:03 | disposition home or self-care (01) ==
LOC: PCU 09:12 → MHTC 09:12 → PCU 14:29 → MHTC 23:19
DX: I70.239 Atherosclerosis of native arteries of right leg with ulceration of unspecified site (principal); Z88.8 Allergy status to other drugs, medicaments and biological substances
CPT/HCPCS: 36140; 37224; 37228; 37232; 75625; 75716; 75774; 76937; 82947; 85347; 99152; 99153; C1725; C1760; C1769; C1887; C1894; C2623; J0690; J1644; J2250; J2270; J3010; J7030; Q9967

== ENCOUNTER 2019-05-18 11:19 | Inpatient (IN) | payer OTHER ==
[~2019-05-18] VITALS: Ht 177.8 cm; Wt 100.7 kg
[~2019-05-18 11:19] MED LIST changes: +TRAZ50 PO
[2019-05-18] MEDS ORDERED: INSULIN GLARGINE SC (11:28)
[2019-05-18 11:56] LABS: BASOPHILS ABSOLUTE AUTO 0.04 K/mm3 (0.00-0.23); BASOPHILS PERCENT AUTO 1 % (0-2); EOSINOPHILS ABSOLUTE AUTO 0.06 K/mm3 (0.00-0.68); EOSINOPHILS PERCENT AUTO 1 % (0-6); Hematocrit 33.8 % (33.0-51.0); Hemoglobin 10.3 g/dL (11.5-16.0); IMMATURE GRAN ABSOLUTE AUTO 0.08 K/mm3 (0.00-0.10); IMMATURE GRAN PERCENT AUTO 1 % (0-1); LYMPHOCYTES ABSOLUTE AUTO 1.68 K/mm3 (0.84-5.20); LYMPHOCYTES PERCENT AUTO 19 % (21-46); MONOCYTES ABSOLUTE AUTO 0.53 K/mm3 (0.16-1.47); MONOCYTES PERCENT AUTO 6 % (4-13); Mean Corpuscular HGB 25.3 pg (26.0-34.0); Mean Corpuscular HGB Conc 30.5 g/dL (31.5-36.5); Mean Corpuscular Volume 83 fL (80-100); Mean Platelet Volume 9.4 fL (9.1-12.4); NEUTROPHILS ABSOLUTE AUTO 6.35 K/mm3 (1.96-9.15); NEUTROPHILS PERCENT AUTO 73 % (41-73); NRBC ABSOLUTE 0.02 K/mm3 (0.00-0.02); NRBC Auto 0.2 /100 WBC (0.0-0.2); Platelet Count 429 K/mm3 (150-400); RDW Coefficient Variation 16.9 % (11.7-14.2); Red Blood Cell Count 4.07 M/mm3 (3.80-5.20); White Blood Cell Count 8.74 K/mm3 (4.00-11.30)
[2019-05-18 12:13] LABS: Alanine Aminotransfer (ALT/SGP 36 U/L (12-78); Albumin, Blood 2.6 g/dL (3.4-5.0); Albumin/Globulin Ratio 0.4 (0.8-1.8); Alk Phos 88 U/L (50-136); Anion Gap 8 mmol/L (6-16); Aspartate Aminotrans (AST/SGOT 51 U/L (12-37); Bilirubin, Total 0.2 mg/dL (0.1-1.0); Blood Urea Nitrogen 13 mg/dL (8-24); Bun/Creatinine Ratio 16.1 (12.0-20.0); CO2, Blood 28 mmol/L (21-32); Calcium, Blood 9.3 mg/dL (8.5-10.1); Chloride, Blood 100 mmol/L (98-108); Creatinine, Blood 0.81 mg/dL (0.40-1.00); Globulin, Blood 5.8 g/dL (2.2-4.0); Glomerular Filtration Rate >60 (60-); Glucose, Blood 160 mg/dL (70-99); Potassium, Blood 3.6 mmol/L (3.5-5.5); Sodium, Blood 136 mmol/L (136-145); Total Protein, Blood 8.4 g/dL (6.4-8.2)
[2019-05-18] MEDS ORDERED: Lantus100 UNIT/1 SC (14:38)
[2019-05-18] MEDS ORDERED: GLIP5 PO (14:39)
[2019-05-18] MEDS ORDERED: FURO20 PO (14:39)
[2019-05-18] MEDS ORDERED: FERSU300 PO (14:39)
[2019-05-18] MEDS ORDERED: Metformin HCl1000 MG PO (14:41)
[2019-05-18] MEDS ORDERED: Adult Low Dose81 MG PO (14:42)
[2019-05-18] MEDS ORDERED: Protonix40 MG PO (14:42)
[2019-05-18] MEDS ORDERED: Humalog100 UNIT/1 SC (14:43)
[2019-05-18] MEDS ORDERED: Hair, Skin & N1 EACH PO (14:44)
--- NOTE | 2019-05-18 17:56 | NUR ---
PATIENT ADMITTED FROM ER THIS AFTERNOON. CELLULITIS TO RIGHT LOWER LEG. LEFT BKA. PATIENT HAS DM ULCERS TO REMAINING FOOT. LEG WEEPING. PICTURES IN CHART. PT IS ALERT AND ORIENTED AND REQUIRES ASSISTANCE WITH REPOSITONING . NO OTHER BREAKDOWN NOTED. PATIENT IS A FREQUENT PATIENT.
--- NOTE | 2019-05-19 05:08 | NUR ---
SHIFT SUMMARY PT HAS HAD A DIFFICULT NIGHT, DID NOT SLEEP MUCH AT ALL. MAYBE AN HOUR OR TWO. COMPLAINED THAT THE BED WAS UNCOMFORTABLE. OFFERED TYLENOL THROUGHOUT THE NIGHT WHICH PATIENT DENIED WANTING UNTIL THIS AM. 650 MG TYLENOL GIVEN FOR PAIN IN BACK AND R ANKLE. L BKA. R LEG WITH CELLULITIS AND ULCER TO R HEEL. WHEEPING FROM RLE. MEPILEX DRESSING PLACED TO R HEEL. PT [place]2 [place] [facility] [place] HAS DIFFICULT TIME DUE TO BKA AND IT BEING PAINFUL TO PLACE WEIGHT ON R LEG. PT REPOSITIONED FOR COMFORT WHEN REQUESTED. VITAL SIGNS STABLE. OTHERWISE NO ACUTE CHANGES THIS EVENING.
[2019-05-19 05:50] LABS: BASOPHILS ABSOLUTE AUTO 0.03 K/mm3 (0.00-0.23); BASOPHILS PERCENT AUTO 1 % (0-2); EOSINOPHILS PERCENT AUTO 2 % (0-6); Hemoglobin 9.6 g/dL (11.5-16.0); IMMATURE GRAN ABSOLUTE AUTO 0.07 K/mm3 (0.00-0.10); IMMATURE GRAN PERCENT AUTO 1 % (0-1); LYMPHOCYTES ABSOLUTE AUTO 1.28 K/mm3 (0.84-5.20); LYMPHOCYTES PERCENT AUTO 20 % (21-46); MONOCYTES ABSOLUTE AUTO 0.45 K/mm3 (0.16-1.47); MONOCYTES PERCENT AUTO 7 % (4-13); Mean Corpuscular HGB 24.6 pg (26.0-34.0); Mean Corpuscular Volume 82 fL (80-100); Mean Platelet Volume 9.7 fL (9.1-12.4); NEUTROPHILS ABSOLUTE AUTO 4.58 K/mm3 (1.96-9.15); NEUTROPHILS PERCENT AUTO 70 % (41-73); Platelet Count 401 K/mm3 (150-400); RDW Coefficient Variation 16.9 % (11.7-14.2); RDW Standard Deviation 50.4 fL (35.1-46.3); Red Blood Cell Count 3.91 M/mm3 (3.80-5.20); White Blood Cell Count 6.51 K/mm3 (4.00-11.30)
[2019-05-19 06:13] LABS: Anion Gap 6 mmol/L (6-16); Blood Urea Nitrogen 8 mg/dL (8-24); CO2, Blood 30 mmol/L (21-32); Calcium, Blood 8.7 mg/dL (8.5-10.1); Chloride, Blood 103 mmol/L (98-108); Glomerular Filtration Rate >60 (60-); Glucose, Blood 108 mg/dL (70-99); Potassium, Blood 4.7 mmol/L (3.5-5.5); Sodium, Blood 139 mmol/L (136-145)
--- NOTE | 2019-05-19 13:05 | NUR ---
WOUND CARE/DRSG CHANGE PROVIDED TO R ANKLE/HEEL & R CALF.
[2019-05-19 15:54] LABS: Vancomycin, Trough 10.5 ug/mL (5.0-10.0)
--- NOTE | 2019-05-19 17:36 | NUR ---
SUMMARY PT IS A/O X4, PLEASANT AFFECT. L BKA W R LEG CELLULITIS. 2 ASSIST STAND/PIVOT TO CHAIR. SHE HAS CHOSE TO STAY IN BED THIS SHIFT, SITS UP ON BEDSIDE FOR MEALS. USES BEDPAN TO VOID. R LEG RED, WARM, SWOLLEN 2+. LRG BLOOD BLISTER ON HEEL, ULCER BALL OF FOOT, 2ND TOE RED/PURPLE, BACK OF CALF EXCORIATED, WEEPING. WOUND/DRSG CHANGE PROVIDED. SHE HAS STATED NO PAIN T/O DAY, STATE CHR NEUROPATHY. IV ANTIBX CONTINUE.
--- NOTE | 2019-05-20 04:50 | NUR ---
SHIFT SUMMARY PT HAD MUCH BETTER NIGHT TONIGHT. SLEEPING MORE THROUGHOUT THE NIGHT. MEDICATED W/ TYLENOL 650 MG X 1 BEFORE BED. DRESSINGS TO R LEG AND R FOOT REMAINED CLEAN, DRY, AND INTACT. PT REMAINED IN BED THIS EVENING, USING THE BEDPAN WHEN VOIDING. VOIDING WELL. VSS. NO OTHER ACUTE CHANGES. WILL CONTINUE TO MONITOR AND REPORT TO DAY RN.
[2019-05-20 05:49] LABS: Hematocrit 32.3 % (33.0-51.0); Hemoglobin 9.6 g/dL (11.5-16.0); Mean Corpuscular HGB 25.2 pg (26.0-34.0); Mean Corpuscular HGB Conc 29.7 g/dL (31.5-36.5); Mean Platelet Volume 9.3 fL (9.1-12.4); Platelet Count 427 K/mm3 (150-400); RDW Coefficient Variation 16.8 % (11.7-14.2); RDW Standard Deviation 51.8 fL (35.1-46.3); Red Blood Cell Count 3.81 M/mm3 (3.80-5.20)
[2019-05-20 05:51] LABS: Mean Corpuscular Volume 85 fL (80-100)
[2019-05-20 06:07] LABS: Percent Saturation 14.8 % (15.0-50.0)
[2019-05-20] MEDS ORDERED: Vsl#3 Capsule1 EACH PO (10:40)
[2019-05-20] MEDS ORDERED: DOXY100 PO (10:41)
--- NOTE | 2019-05-20 12:21 | NUR ---
DISCHARGE DR MCCOY IN TO SEE PT THIS AM, PT STATE FEELS READY TO GO HOME. DR ASSESS CELLULITIS. PROVIDE D/C HOME ORDERS. IV D/C INTACT. BARYTES GRINDER MAKE ARRANGEMENTS FOR TRANSPORTATION HOME w STOP @ [facility] ON THE WAY TO UTILITIES OPERATOR HER MEDICATIONS. EDUCATION REPORTER ASSIST PT TO SHOWER. WOUND CARE/DRSG CHANGES X4 PROVIDED TO R LEG WOUNDS. D/C INSTRUCT REVIEWED W PT. ASSISTED HER TO DRESS & GATHER BELONGINGS. WAITING FOR [facility] TRANSPORTATION HOME.
== END 2019-05-20 12:33 | disposition home or self-care (01) | DRG 638 ==
LOC: ER 11:19 → MEDS 14:32 → ENPENDDIS 05-20 10:51 → MEDS 05-20 12:33
PROVIDERS: Emergency Medicine; ADMIT Internal Medicine
DX: E11.628 Type 2 diabetes mellitus with other skin complications (principal); L03.115 Cellulitis of right lower limb; B95.62 Methicillin resistant Staphylococcus aureus infection as the cause of diseases classified elsewhere; E11.621 Type 2 diabetes mellitus with foot ulcer; L97.519 Non-pressure chronic ulcer of other part of right foot with unspecified severity; D63.8 Anemia in other chronic diseases classified elsewhere; I10 Essential (primary) hypertension; E11.51 Type 2 diabetes mellitus with diabetic peripheral angiopathy without gangrene; E78.5 Hyperlipidemia, unspecified; Z89.512 Acquired absence of left leg below knee; Z79.4 Long term (current) use of insulin
CPT/HCPCS: 36415; 73701; 80048; 80053; 80202; 82728; 82947; 83540; 83550; 83605; 85025; 85027; 87040; 96365-59; 99285-25; A9270; J0696; J1650; J3370; J7120; Q9967

== ENCOUNTER 2019-07-05 00:21 | Day surgery (SDC) | payer OTHER ==
[~2019-07-05 00:21] MED LIST changes: +Adult Low Dose81 MG PO; +DOXY100 PO; +FERSU300 PO; +Humalog100 UNIT/1 SC; +INSULIN GLARGINE SC; +Lantus100 UNIT/1 SC; +Metformin HCl1000 MG PO; +Protonix40 MG PO; +Vsl#3 Capsule1 EACH PO
== END 2019-07-05 22:52 | disposition home or self-care (01) ==
LOC: WOUND 00:21
DX: E11.621 Type 2 diabetes mellitus with foot ulcer (principal); L97.511 Non-pressure chronic ulcer of other part of right foot limited to breakdown of skin; E11.51 Type 2 diabetes mellitus with diabetic peripheral angiopathy without gangrene; E11.40 Type 2 diabetes mellitus with diabetic neuropathy, unspecified; I10 Essential (primary) hypertension
CPT/HCPCS: G0463

== ENCOUNTER 2019-07-10 12:06 | Inpatient (IN) | payer OTHER ==
[~2019-07-10] VITALS: Ht 177.8 cm; Wt 108.9 kg
[2019-07-10 12:35] LABS: BASOPHILS ABSOLUTE AUTO 0.03 K/mm3 (0.00-0.23); BASOPHILS PERCENT AUTO 0 % (0-2); EOSINOPHILS PERCENT AUTO 0 % (0-6); Hematocrit 36.9 % (33.0-51.0); Hemoglobin 11.3 g/dL (11.5-16.0); IMMATURE GRAN ABSOLUTE AUTO 0.15 K/mm3 (0.00-0.10); IMMATURE GRAN PERCENT AUTO 1 % (0-1); LYMPHOCYTES ABSOLUTE AUTO 1.23 K/mm3 (0.84-5.20); LYMPHOCYTES PERCENT AUTO 7 % (21-46); MONOCYTES ABSOLUTE AUTO 0.46 K/mm3 (0.16-1.47); MONOCYTES PERCENT AUTO 3 % (4-13); Mean Corpuscular HGB 25.4 pg (26.0-34.0); Mean Corpuscular HGB Conc 30.6 g/dL (31.5-36.5); Mean Corpuscular Volume 83 fL (80-100); Mean Platelet Volume 8.8 fL (9.1-12.4); NEUTROPHILS ABSOLUTE AUTO 15.24 K/mm3 (1.96-9.15); NEUTROPHILS PERCENT AUTO 89 % (41-73); Platelet Count 316 K/mm3 (150-400); RDW Coefficient Variation 16.7 % (11.7-14.2); RDW Standard Deviation 50.7 fL (35.1-46.3); Red Blood Cell Count 4.45 M/mm3 (3.80-5.20); White Blood Cell Count 17.11 K/mm3 (4.00-11.30)
[2019-07-10 13:17] LABS: Alanine Aminotransfer (ALT/SGP 29 U/L (12-78); Albumin/Globulin Ratio 0.6 (0.8-1.8); Alk Phos 62 U/L (50-136); Anion Gap 11 mmol/L (6-16); Aspartate Aminotrans (AST/SGOT 36 U/L (12-37); Bilirubin, Total 0.7 mg/dL (0.1-1.0); Blood Urea Nitrogen 13 mg/dL (8-24); CO2, Blood 25 mmol/L (21-32); Calcium, Blood 8.6 mg/dL (8.5-10.1); Chloride, Blood 99 mmol/L (98-108); Glomerular Filtration Rate >60 (60-); Glucose, Blood 270 mg/dL (70-99); Potassium, Blood 3.2 mmol/L (3.5-5.5); Sodium, Blood 135 mmol/L (136-145)
[2019-07-10 14:23] LABS: Source, Urine Clean Catch
[2019-07-10 14:38] LABS: Bilirubin, Urine Neg (Neg); Blood, Urine 4+ (Neg); Glucose Qualitative, Urine 3+ (Neg); Ketones, Urine 3+ (Neg); Leukocyte Esterase, Urine Neg (Neg); Nitrite, Urine Neg (Neg); Protein, Urine 3+ (Neg); Specific Gravity, Urine 1.025 (1.003-1.022); Urobilinogen, Urine NORM (Normal)
[2019-07-10 14:46] LABS: Appearance, Urine Clear (Clear); Color, Urine Yellow (P-Yellow)
[2019-07-10 14:48] LABS: Bacteria Mod /hpf; Squamous Epithelial Cells Mod /hpf (Few); White Blood Cells, Urine 0-2 /hpf (0-5)
[2019-07-10] MEDS ORDERED: Magnesium250 MG PO (15:46)
[2019-07-10] MEDS ORDERED: FERRO-TIME325 MG PO (15:47)
[2019-07-10] MEDS ORDERED: INSULANPEN SC (15:47)
[2019-07-10] MEDS ORDERED: GLIP5 PO (15:48)
[2019-07-10] MEDS ORDERED: ST. JOSEPH ASPI81 MG PO (15:48)
[2019-07-10] MEDS ORDERED: Protonix40 MG PO (15:49)
[2019-07-10] MEDS ORDERED: PROBIOTIC1 EAC4 PO (21:11)
[2019-07-10] MEDS ORDERED: TUMS500 MG PO (21:12)
[2019-07-11 05:08] LABS: BASOPHILS ABSOLUTE AUTO 0.03 K/mm3 (0.00-0.23); BASOPHILS PERCENT AUTO 0 % (0-2); EOSINOPHILS PERCENT AUTO 0 % (0-6); Hematocrit 30.6 % (33.0-51.0); Hemoglobin 9.3 g/dL (11.5-16.0); Mean Corpuscular HGB 25.1 pg (26.0-34.0); Mean Corpuscular HGB Conc 30.4 g/dL (31.5-36.5); Mean Corpuscular Volume 83 fL (80-100); Mean Platelet Volume 9.1 fL (9.1-12.4); Platelet Count 204 K/mm3 (150-400); RDW Coefficient Variation 16.8 % (11.7-14.2); RDW Standard Deviation 50.6 fL (35.1-46.3); Red Blood Cell Count 3.71 M/mm3 (3.80-5.20); White Blood Cell Count 10.01 K/mm3 (4.00-11.30)
[2019-07-11 05:24] LABS: IMMATURE GRAN ABSOLUTE AUTO 0.05 K/mm3 (0.00-0.10); IMMATURE GRAN PERCENT AUTO 1 % (0-1); LYMPHOCYTES ABSOLUTE AUTO 1.11 K/mm3 (0.84-5.20); LYMPHOCYTES PERCENT AUTO 11 % (21-46); MONOCYTES ABSOLUTE AUTO 0.36 K/mm3 (0.16-1.47); MONOCYTES PERCENT AUTO 4 % (4-13); NEUTROPHILS ABSOLUTE AUTO 8.46 K/mm3 (1.96-9.15); NEUTROPHILS PERCENT AUTO 85 % (41-73)
[2019-07-11 05:41] LABS: Anion Gap 8 mmol/L (6-16); Blood Urea Nitrogen 13 mg/dL (8-24); Bun/Creatinine Ratio 14.4 (12.0-20.0); CO2, Blood 24 mmol/L (21-32); Calcium, Blood 7.8 mg/dL (8.5-10.1); Chloride, Blood 106 mmol/L (98-108); Glomerular Filtration Rate >60 (60-); Glucose, Blood 231 mg/dL (70-99); Potassium, Blood 3.6 mmol/L (3.5-5.5); Sodium, Blood 138 mmol/L (136-145)
--- NOTE | 2019-07-11 07:32 | NUR ---
SHIFT SUMMARY PATEINT ADMITTED FROM ER. PICTURES OF RLE PLACED IN CHART. ATTEMPTED TO GET PATIENT TO TRANSFER TO BSC AND BACK TO BED TO USE THE BATHROOM. RECOMMENDED TO DAYSHIFT THAT PATIENT USE A BEDPAN ONLY UNTIL FEELING STRONGER OR AFTER PT/OT. WOUNDS ON RLE DRESSED. ORIENTED TO PERSON, PLACE. BUT NOT TIME OR SITUATION. REPORT GIVEN TO DAY SHIFT RN.
--- NOTE | 2019-07-11 14:07 | NUR ---
DR GERMAIN WAS IN PATIENT ROOM FOR CONSULT. NEW DRESSING APPLIED.
[2019-07-11 15:28] LABS: Vancomycin, Trough 9.8 ug/mL (5.0-10.0)
--- NOTE | 2019-07-11 16:48 | NUR ---
SHIFT SUMMARY PATIENT HAS BEEN PLEASANT AND COOPERATIVE WITH STAFF. CONTINUES ON IV ABX WITHOUT S/SX OF ADVERSE REACTIONS NOTED OR REPORTED. UNEVENTFUL DAY FOR PATIENT WITHOUT NOTABLE CHANGES AT THIS TIME. WILL CONTINUE TO MONITOR AND PROVIDE CARE NEEDED.
[2019-07-12 04:35] LABS: Hematocrit 30.3 % (33.0-51.0); Hemoglobin 9.2 g/dL (11.5-16.0); Mean Corpuscular HGB 25.1 pg (26.0-34.0); Mean Corpuscular HGB Conc 30.4 g/dL (31.5-36.5); Mean Corpuscular Volume 83 fL (80-100); Mean Platelet Volume 9.2 fL (9.1-12.4); Platelet Count 174 K/mm3 (150-400); RDW Coefficient Variation 16.6 % (11.7-14.2); RDW Standard Deviation 50.3 fL (35.1-46.3); Red Blood Cell Count 3.67 M/mm3 (3.80-5.20); White Blood Cell Count 6.65 K/mm3 (4.00-11.30)
[2019-07-12 04:54] LABS: Anion Gap 5 mmol/L (6-16); Blood Urea Nitrogen 10 mg/dL (8-24); Bun/Creatinine Ratio 12.8 (12.0-20.0); CO2, Blood 27 mmol/L (21-32); Calcium, Blood 7.9 mg/dL (8.5-10.1); Chloride, Blood 105 mmol/L (98-108); Creatinine, Blood 0.78 mg/dL (0.40-1.00); Glomerular Filtration Rate >60 (60-); Glucose, Blood 236 mg/dL (70-99); Potassium, Blood 3.6 mmol/L (3.5-5.5); Sodium, Blood 137 mmol/L (136-145)
--- NOTE | 2019-07-12 05:44 | NUR ---
SHIFT SUMMARY NO ACUTE EVENTS OVERNIGHT. PATIENT SLEPT THROUGH MAHORITY OF FISH SALTER. IV ABX ORDERED. PILLS SWALLOWED WHOLE WITH H2O. WILL CONTINUE TO MONITOR AND REPORT TO ONCOMING SHIFT
[2019-07-12] MEDS ORDERED: ACET325 PO (13:21)
[2019-07-12] MEDS ORDERED: Bactrim Ds Tab1 EACH PO (13:23)
--- NOTE | 2019-07-12 15:30 | NUR ---
PT. DISCHARGED HOME WITH [facility]. PT. LEFT IN HER OWN PERSONAL Jalen
--- NOTE | 2019-07-12 15:38 | NUR ---
While transfering pt to wheel chair with FWW, pt started to sit a little too soon and became unsteady. The safest option for the pt and me was to gently continue to the floor. I needed someone to help me get the patient up.
== END 2019-07-12 15:42 | disposition home health service (06) | DRG 872 ==
LOC: ER 12:06 → MEDS 17:22
PROVIDERS: Emergency Medicine; ADMIT Internal Medicine
DX: A41.9 Sepsis, unspecified organism (principal); L03.115 Cellulitis of right lower limb; R65.20 Severe sepsis without septic shock; Z79.4 Long term (current) use of insulin; E78.00 Pure hypercholesterolemia, unspecified; E11.42 Type 2 diabetes mellitus with diabetic polyneuropathy; E11.51 Type 2 diabetes mellitus with diabetic peripheral angiopathy without gangrene; Z89.512 Acquired absence of left leg below knee; Z89.421 Acquired absence of other right toe(s); E11.65 Type 2 diabetes mellitus with hyperglycemia; Z87.891 Personal history of nicotine dependence; Z79.82 Long term (current) use of aspirin; E87.6 Hypokalemia; E11.621 Type 2 diabetes mellitus with foot ulcer; L97.512 Non-pressure chronic ulcer of other part of right foot with fat layer exposed; L89.612 Pressure ulcer of right heel, stage 2
CPT/HCPCS: 36415; 71045; 73630; 80048; 80053; 80202; 81001; 82947; 83036; 83605; 85025; 85027; 87040; 87086; 96365; 96366; 96367; 96372-59; 99284-25; C9113; J1650; J2543; J3370; J7030; J7050

== ENCOUNTER 2019-08-07 17:09 | Inpatient (IN) | payer OTHER ==
[~2019-08-07] VITALS: Ht 177.8 cm; Wt 97.4 kg
[~2019-08-07 17:09] MED LIST changes: +ACET325 PO; +FERRO-TIME325 MG PO; +Magnesium250 MG PO; +PROBIOTIC1 EAC4 PO; +ST. JOSEPH ASPI81 MG PO; +TUMS500 MG PO
[2019-08-07 17:37] LABS: BASOPHILS ABSOLUTE AUTO 0.05 K/mm3 (0.00-0.23); BASOPHILS PERCENT AUTO 0 % (0-2); EOSINOPHILS ABSOLUTE AUTO 0.01 K/mm3 (0.00-0.68); EOSINOPHILS PERCENT AUTO 0 % (0-6); Hematocrit 41.2 % (33.0-51.0); Hemoglobin 12.6 g/dL (11.5-16.0); IMMATURE GRAN ABSOLUTE AUTO 0.11 K/mm3 (0.00-0.10); IMMATURE GRAN PERCENT AUTO 1 % (0-1); LYMPHOCYTES ABSOLUTE AUTO 1.43 K/mm3 (0.84-5.20); LYMPHOCYTES PERCENT AUTO 7 % (21-46); MONOCYTES ABSOLUTE AUTO 0.74 K/mm3 (0.16-1.47); MONOCYTES PERCENT AUTO 4 % (4-13); Mean Corpuscular HGB 25.7 pg (26.0-34.0); Mean Corpuscular HGB Conc 30.6 g/dL (31.5-36.5); Mean Corpuscular Volume 84 fL (80-100); Mean Platelet Volume 8.8 fL (9.1-12.4); NEUTROPHILS ABSOLUTE AUTO 18.66 K/mm3 (1.96-9.15); NEUTROPHILS PERCENT AUTO 89 % (41-73); Platelet Count 326 K/mm3 (150-400); RDW Standard Deviation 49.5 fL (35.1-46.3); Red Blood Cell Count 4.91 M/mm3 (3.80-5.20)
[2019-08-07 18:03] LABS: Alanine Aminotransfer (ALT/SGP 33 U/L (12-78); Albumin, Blood 3.4 g/dL (3.4-5.0); Albumin/Globulin Ratio 0.6 (0.8-1.8); Alk Phos 82 U/L (50-136); Anion Gap 9 mmol/L (6-16); Aspartate Aminotrans (AST/SGOT 22 U/L (12-37); Bilirubin, Total 0.4 mg/dL (0.1-1.0); Blood Urea Nitrogen 12 mg/dL (8-24); Bun/Creatinine Ratio 13.5 (12.0-20.0); CO2, Blood 27 mmol/L (21-32); Calcium, Blood 9.4 mg/dL (8.5-10.1); Chloride, Blood 96 mmol/L (98-108); Creatinine, Blood 0.89 mg/dL (0.40-1.00); Globulin, Blood 5.5 g/dL (2.2-4.0); Glomerular Filtration Rate >60 (60-); Glucose, Blood 240 mg/dL (70-99); Potassium, Blood 3.8 mmol/L (3.5-5.5); Sodium, Blood 132 mmol/L (136-145); Total Protein, Blood 8.9 g/dL (6.4-8.2)
[2019-08-07] MEDS ORDERED: Potassium Chlo20 ME1 PO (18:40)
--- NOTE | 2019-08-07 23:22 | NUR ---
@2156 PT. NEW ADMISSION FROM ED. REPORT RECEIVED FROM SHIRA SWENSON @2129. PT. WITH LACTIC ACID OF 3.9 IN TH ED. PER ED NURSE NO ORDERS FOR FLUID BOLUS, STATED PT. GIVEN VANCOMYCIN AND ANCEF IN THE ED. PT. ARRIVED INTO ROOM VIA STRETCHER. TRANSFERRED INTO BED BY NURSING STAFF. PT. A&OX3, LT BKA WITH ULCER TO THE RT HEEL. PT. DENIES ANY PAIN AT THIS TIME. IV FLUIDS STARTED WITH IV ABX'S. @0 RECEIVED CALL FROM LAB. PT. WITH CRITICAL LACTIC OF 4.3. BP STABLE, HR 104. NOTIFIED DR. EMERSON. NO NEW ORDERS RECEIVED. INSTRUCTED TO MONITOR PT. PT. HAS NO KNOWN HX OF CHF OR RENAL IMPAIRMENT. @5717 PT. WITH TEMP OF 102.7 POST TYLENOL ADMINISTRATION. NOTIFIED SWETHA VELAZQUEZ, STATED WOULD DISCUSS WITH DR. EMERSON AND CALL BACK WITH FURTHER ORDERS.
--- NOTE | 2019-08-08 00:30 | NUR ---
ASSUMED CARE/PT TRANSFER REPORT TAKEN FROM ANY RN FROM [facility] FLOOR. PT WAS TRANSFERED VIA BED TO PCU RM 8. PT ALERT AND ORIENTED, IN GOOD SPIRITS. PT EDUCATED ON REASON FOR MOVE TO HIGH CARE UNIT AND CHANGE IN PT STATUS. UPON ARRIVAL PT GAVE CONSENT FOR PICTURES OF LEG WOUNDS AND FOR RECTAL TEMP PROBE. RECTAL TEMP PROBE PLACED AND TEMP UPON ARRIVAL WAS 102.9. AT THIS TIME, PANTS WERE REMOVED FROM PT, BLANKETS REMOVED AND FLAT SHEET PLACED ON PT. ICE PACKS WERE PLACED IN BILATERAL ARMPITS, AND PLACED IN GROIN. PT REPORTS UNDERSTANDING OF NEEDS TO LOWER TEMP. IV NS BOLUS INFUSING AT THIS TIME. PT RECTAL TEMP HAS SINCE LOWERED ALREADY IN ROOM TO 102.6. PT DENIES ANY CP OR SOB. PT REPORTS FEELING "OK JUST COLD". RESP EVEN UNLABORED ON RA W/ SATS >92%. CALL LIGHT IN REACH. PT WILL BE CLOSELY MONITORED.
--- NOTE | 2019-08-08 00:42 | NUR ---
@1040- PT. WITH TEMP OF 102.7 AFTER TYLENOL. A&O, DENIES ANY PAIN OR DISCOMFORT. APPLIED ICE PACKS TO ARM PITS, GROIN, AND BEHIND THE NECK. WAITING ON FURTHER ORDERS FROM DR. EMERSON AND/OR SWETHA VELAZQUEZ. @4722- SWETHA TONY FENCE MAKING MACHINE OPERATOR ARRIVED TO PT. ROOM, STATED DISCUSSED PT. STATUS WITH DR. EMERSON AND RECEIVED NO FURTHER INSTRUCTIONS OTHER THAN TO MONITOR PT. THIS NURSE QUESTIONED NO ORDER FOR BOLUS. PT. AT THE TIME RECEIVING MAINTENANCE FLUIDS OF NS @100MLS/HR. INFORMED SWETHA PT. TEMP INCREASED TO 103.2 ORAL, HR OF 102, BP DOWN TO 107/45 AND PT. LETHARGIC. SWETHA AGREED TO GIVE 1L BOLUS FROM CURRENT MAINTENANCE FLUIDS RUNNING. @0008- CHARGE NURSE PATITO SWENSON NOTIIFED OF PT. STATUS. INSTRUCTED BY NURSING INSURANCE LAW SPECIALIST TO CALL DR. EMERSON AND REQUEST PCU BED FOR PT. CHARGE NURSE CALLED DR. EMERSON, REQUESTED PCU STATUS FOR PT. PHYSICIAN AGREED. RECHECK OF VS DONE. PT. TEMP STILL AT 103.1 ORAL, OTHER VSS. FLUID BOLUS INFUSING. PT. MORE ALERT NOW. WILL CONT TO MONITOR.
--- NOTE | 2019-08-08 01:21 | NUR ---
@0030 PT. TRANSFERRED TO PCU BED 8 PER ORDER. REPORT GIVEN TO CRISSY SWENSON. TRANSPORTED VIA BED BY CHARGE NURSE PATITO AND THIS NURSE. BOLUS INFUSING. PT. A&O, NO APPARENT DISTRESS NOTED.
--- NOTE | 2019-08-08 01:25 | NUR ---
08/07/19 @2014- CALLED ER FOR REPORT ON THIS NEW ADMISSION. SPOKE WITH NUPUR SWENSON. QUESTIONED THIS ER NURSE REGARDING LACTIC ACID OF 3.9 AND NOTICED NO ORDERS FOR FLUID BOLUS. ER NURSE STATED PHYSICIAN DID NOT WANT TO BOLUS PT. REASONING UNKNOWN. NO CHF, RENAL IMPAIRMENT, OR OTHER CONTRAINDICATIONS NOTED ON PMHX. ALSO EXPRESSED CONCERN PT. WITH LOW GRADE TEMP INCREASING AND ELEVATED HR. INFORMED NUPUR SWENSON WOULD NEED TO DISCUSS PT. STATUS WITH CHARGE NURSE BEFORE RECEIVING REPORT OR ASSUMING CARE OF PT. TO MAKE SURE APPROPRIATE FOR MEDICAL UNIT.
--- NOTE | 2019-08-08 01:35 | NUR ---
PT UPDATE NS BOLUS COMPLETED AT THIS TIME. MAINTENENCE FLUIDS RESUMED AT 100ML/HR TIMES 1.5 LITERS. RECTAL TEMP AT THIS TIME IS 102.0. PT IS SLEEPING WELL. WILL CONTINUE TO MONITOR FOR LOWERING TEMP AND CALL HOSPITALIST NEEDED FOR FURTHER ORDERS.
--- NOTE | 2019-08-08 02:02 | NUR ---
TEMP DOWN TO 101.8
[2019-08-08 03:28] LABS: Hematocrit 33.6 % (33.0-51.0); Hemoglobin 10.3 g/dL (11.5-16.0); Mean Corpuscular HGB 25.6 pg (26.0-34.0); Mean Corpuscular HGB Conc 30.7 g/dL (31.5-36.5); Mean Corpuscular Volume 84 fL (80-100); Platelet Count 252 K/mm3 (150-400); RDW Coefficient Variation 16.6 % (11.7-14.2); RDW Standard Deviation 50.9 fL (35.1-46.3); Red Blood Cell Count 4.02 M/mm3 (3.80-5.20)
[2019-08-08 03:46] LABS: Alanine Aminotransfer (ALT/SGP 22 U/L (12-78); Albumin, Blood 2.5 g/dL (3.4-5.0); Albumin/Globulin Ratio 0.6 (0.8-1.8); Alk Phos 59 U/L (50-136); Anion Gap 8 mmol/L (6-16); Aspartate Aminotrans (AST/SGOT 19 U/L (12-37); Bilirubin, Total 0.3 mg/dL (0.1-1.0); Blood Urea Nitrogen 11 mg/dL (8-24); Bun/Creatinine Ratio 12.5 (12.0-20.0); CO2, Blood 25 mmol/L (21-32); Calcium, Blood 7.9 mg/dL (8.5-10.1); Chloride, Blood 104 mmol/L (98-108); Creatinine, Blood 0.88 mg/dL (0.40-1.00); Globulin, Blood 4.3 g/dL (2.2-4.0); Glomerular Filtration Rate >60 (60-); Glucose, Blood 264 mg/dL (70-99); Potassium, Blood 3.6 mmol/L (3.5-5.5); Sodium, Blood 137 mmol/L (136-145)
[2019-08-08 03:47] LABS: Total Protein, Blood 6.8 g/dL (6.4-8.2)
--- NOTE | 2019-08-08 04:00 | NUR ---
TEMP DECREASED TO 99.8
--- NOTE | 2019-08-08 05:29 | NUR ---
SHIFT SUMMARY PT SLEEPING IN ROOM COMFORTABLY AT THIS TIME. SINCE ARRIVAL PT TEMP HAS BEEN DECREASING FOLLOWING FLUID BOLUS AND ACTIVE COOLING MEASURES OF ICE PACKS IN GROIN AND UNDER ARMS. PT TMAX WAS 103.3, PT NOW HAS RECTAL TEMP OF 99.8. PT WAS ALLOWED THIN BLANKET D/T FEELING COLD, AND TEMP MUCH IMPROVED. NS INFUSING IN PIV 100ML/HR FOR MAINTANENCE. PT REPROTS FEELING MUCH BETTER AFTER FEVER RECUDED. DENIES ANY CP, OR SOB. RESP EVEN UNABORED ON RA W/ SATS >92%. REDNESS ON R LE NOTED AND PICS IN CHART. BKA NOTED TO LE. R LEG SLIGHTLY ELEVATED W/ BED. DENIES OTHER NEEDS. PT WAS ABLE TO VOID LARGE AMOUNT ON BEDPAN FOR STARS SPECIALIST. CALL LIGHT IN REACH. PT CALLS APPROPRIATELY.
--- NOTE | 2019-08-08 15:17 | NUR ---
Sharon has been exceedingly cheerful, pleasant and cooperative. She has had no c/o pain or discomfort, except for occasional movement of her left leg which was painful. Eating, drinking, voiding without difficulty. Fever has not gone past 100.0. She was using the bedpan to void, but I encouraged her to use the bedside commode with assistance, using toe-touch for transfers as she states this is what she was doing at home. She was toe-touch weight bearing only for toileting at home, she says.
--- NOTE | 2019-08-08 18:26 | NUR ---
The pt was received from the heart center, vital signs stable and right groin venous access site visualized. Gauze secured with tegederm dressing noted in place, without any swelling, bleeding or hematoma noted. Dressing is clean, dry and intact. She denied pain initally, but then stated that her back was aching. Bed placed in reverse trendelenberg position, and she immediately felt relief, she said.
--- NOTE | 2019-08-09 05:02 | NUR ---
SHIFT SUMMARY PT SLEEPING IN ROOM COMFORTABLY AT THIS TIME. NO ACUTE CHANGES IN STATUS T/O NIGHT. PT SLEPT WELL T/O SHIFT. DENIED OTHER NEEDS. RESP EVEN UNLABORED ON RA W/ SATS >92%. PT REPORTS FEELING MUCH BETTER TONIGHT. REDNESS NOTED TO BE DECREASED IN RLE, AND TOE ON R FOOT NO LONGER RED AT ALL. PREVENTATIVE HEEL MEPILEX IN PLACE OVER HEALING DIABETIC ULCER ON R HEEL. PT WAS ABLE TO STAND W/ TOE TOUCH TO USE BSC THIS EVENING. PT ABLE TO SLIDE SELF OVER TO BSC AT BEDSIDE, AND USE TOE TOUCH, W/ STAFF SBA. PT TOLERATED MOVE WELL, W/ LARGE URINE OUTPUT. DENIED ANY CP OR SOB. PT REMAINED AFEBRILE T/O SHIFT. TMAX OF 99.7. CALL LIGHT IN REACH.
--- NOTE | 2019-08-09 07:00 | NUR ---
ASSUMED CARE OF PT- REPORT RECIEVED FROM NIGHT LEELA FRANCOIS. PER REPORT PT HAS BEEN OVERFLOWING THE BEDPAN WHEN USING IT. PT IS A 1P SBA TO THE BS THAT STARTED LAST NIGHT. SHE HAS WOUNDS ON THE RLE WELL A LBKA. PT DENIES NEED FOR PAIN MEDICATION AT THIS TIME. PT IS ALERT AND ORIENTED AND HAS HAD INSTANCES OF CALLING OUT INAPPROPRIATELY. AFTER STAFF SPOKE TO HER THERE HAVE BEEN NO MORE INSIDENCES OF THIS PER REPORT. PT POSSIBLY ABLE TO SWITCH TO MEDICAL STATUS TODAY.
[2019-08-09 07:11] LABS: BASOPHILS ABSOLUTE AUTO 0.03 K/mm3 (0.00-0.23); BASOPHILS PERCENT AUTO 0 % (0-2); EOSINOPHILS ABSOLUTE AUTO 0.14 K/mm3 (0.00-0.68); EOSINOPHILS PERCENT AUTO 2 % (0-6); IMMATURE GRAN ABSOLUTE AUTO 0.04 K/mm3 (0.00-0.10); IMMATURE GRAN PERCENT AUTO 1 % (0-1); LYMPHOCYTES ABSOLUTE AUTO 1.92 K/mm3 (0.84-5.20); LYMPHOCYTES PERCENT AUTO 22 % (21-46); MONOCYTES ABSOLUTE AUTO 0.57 K/mm3 (0.16-1.47); MONOCYTES PERCENT AUTO 7 % (4-13); Mean Corpuscular HGB 25.7 pg (26.0-34.0); Mean Corpuscular HGB Conc 30.3 g/dL (31.5-36.5); Mean Corpuscular Volume 85 fL (80-100); Mean Platelet Volume 8.8 fL (9.1-12.4); NEUTROPHILS ABSOLUTE AUTO 6.11 K/mm3 (1.96-9.15); NEUTROPHILS PERCENT AUTO 69 % (41-73); Platelet Count 220 K/mm3 (150-400); RDW Coefficient Variation 16.3 % (11.7-14.2); RDW Standard Deviation 51.1 fL (35.1-46.3); Red Blood Cell Count 3.89 M/mm3 (3.80-5.20); White Blood Cell Count 8.81 K/mm3 (4.00-11.30)
[2019-08-09 07:27] LABS: Alanine Aminotransfer (ALT/SGP 22 U/L (12-78); Albumin, Blood 2.5 g/dL (3.4-5.0); Albumin/Globulin Ratio 0.5 (0.8-1.8); Alk Phos 64 U/L (50-136); Anion Gap 8 mmol/L (6-16); Aspartate Aminotrans (AST/SGOT 16 U/L (12-37); Bilirubin, Total 0.2 mg/dL (0.1-1.0); Blood Urea Nitrogen 9 mg/dL (8-24); Bun/Creatinine Ratio 11.5 (12.0-20.0); CO2, Blood 25 mmol/L (21-32); Calcium, Blood 8.7 mg/dL (8.5-10.1); Chloride, Blood 106 mmol/L (98-108); Creatinine, Blood 0.78 mg/dL (0.40-1.00); Globulin, Blood 4.8 g/dL (2.2-4.0); Glomerular Filtration Rate >60 (60-); Glucose, Blood 204 mg/dL (70-99); Potassium, Blood 3.9 mmol/L (3.5-5.5); Sodium, Blood 139 mmol/L (136-145); Total Protein, Blood 7.3 g/dL (6.4-8.2)
[2019-08-09 07:28] LABS: Vancomycin, Trough 10.6 ug/mL (5.0-10.0)
--- NOTE | 2019-08-09 10:51 | NUR ---
TRANSFER NOTE- TELEPHONE REPORT GIVEN TO LEELA NEWELL. NO FURTHER QUESTIONS AT THIS TIME PT WILL BE TRANSPORTED UP IN THE BED AND BEDS WILL BE SWAPPED.
--- NOTE | 2019-08-09 17:30 | NUR ---
SHIFT SUMMARY: PT TRANSFERRED FROM PCU THIS MORNING AND WAS ASSISTED AND ORIENTED TO HER NEW ROOM AND NURSING STAFF. CBGS HAVE BEEN COVERED WITH SLIDING SCALE ORDERED. IV ABO INFUSED WITH NO ISSUE. PT IS VERY PLEASANT AND COOPERATIVE WITH HER CARE AND CALLS FOR HELP APPROPRIATELY.
--- NOTE | 2019-08-10 04:55 | NUR ---
SHIFT SUMMARY PT APPEARED UPBEAT AND IN GOOD SPIRITS. SHE REPORTS FEELING BETTER THAN PREVIOUS DAYS. PT EAGER TO BE DISCHARGED. CALL LIGHT IN REACH.
[2019-08-10 05:37] LABS: BASOPHILS ABSOLUTE AUTO 0.03 K/mm3 (0.00-0.23); BASOPHILS PERCENT AUTO 1 % (0-2); EOSINOPHILS ABSOLUTE AUTO 0.21 K/mm3 (0.00-0.68); EOSINOPHILS PERCENT AUTO 4 % (0-6); Hematocrit 34.6 % (33.0-51.0); Hemoglobin 10.3 g/dL (11.5-16.0); IMMATURE GRAN ABSOLUTE AUTO 0.03 K/mm3 (0.00-0.10); IMMATURE GRAN PERCENT AUTO 1 % (0-1); LYMPHOCYTES ABSOLUTE AUTO 2.22 K/mm3 (0.84-5.20); LYMPHOCYTES PERCENT AUTO 37 % (21-46); MONOCYTES ABSOLUTE AUTO 0.38 K/mm3 (0.16-1.47); MONOCYTES PERCENT AUTO 6 % (4-13); Mean Corpuscular HGB 24.6 pg (26.0-34.0); Mean Corpuscular HGB Conc 29.8 g/dL (31.5-36.5); Mean Corpuscular Volume 83 fL (80-100); Mean Platelet Volume 9.1 fL (9.1-12.4); NEUTROPHILS ABSOLUTE AUTO 3.17 K/mm3 (1.96-9.15); NEUTROPHILS PERCENT AUTO 52 % (41-73); Platelet Count 254 K/mm3 (150-400); RDW Coefficient Variation 15.9 % (11.7-14.2); RDW Standard Deviation 48.9 fL (35.1-46.3); Red Blood Cell Count 4.18 M/mm3 (3.80-5.20); White Blood Cell Count 6.04 K/mm3 (4.00-11.30)
[2019-08-10 06:01] LABS: Anion Gap 8 mmol/L (6-16); Blood Urea Nitrogen 11 mg/dL (8-24); Bun/Creatinine Ratio 13.7 (12.0-20.0); CO2, Blood 27 mmol/L (21-32); Calcium, Blood 9.1 mg/dL (8.5-10.1); Chloride, Blood 104 mmol/L (98-108); Glomerular Filtration Rate >60 (60-); Glucose, Blood 205 mg/dL (70-99); Potassium, Blood 3.7 mmol/L (3.5-5.5); Sodium, Blood 139 mmol/L (136-145)
--- NOTE | 2019-08-10 06:51 | NUR ---
DRESSING CHANGE WOUND CLEANED AND DRESSING APPLIED ON RIGHT FOOT. ALGNATE APPLIED AND SECURED BY TERRY BANDAGE.
--- NOTE | 2019-08-10 17:46 | NUR ---
PATIENT IS ALERT AND ORIENTED AND COOPERATIVE WITH CARE. SHE CALLS APPROPRIATELY. SHE TRANSFERRED TO THE [facility] TO HAVE A BM TODAY. SHE WAS A 2PA WITH A GAITBELT. NO COMPLAINTS OF PAIN. PATIENT LIVES AT HOME ALONE. SHE SAYS SHE HAS FRIENDS WHO CAN HELP TAKE CARE OF HER AT HOME ALONG WITH CAREGIVERS TWO DAYS A WEEK. SHE HAS USED THE BEDPAN TO VOID TODAY. WILL CONTINUE TO MONITOR
[2019-08-10 20:27] LABS: Vancomycin, Trough 16.6 ug/mL (5.0-10.0)
--- NOTE | 2019-08-11 05:29 | NUR ---
SHIFT SUMMARY PT HAD A GOOD NIGHT. PT RIGHT LEG APPEARS MARKEDLY IMPROVED. HER FOOT REMAINS BANDAGED AND HAD NO COMPLAINTS OF PAIN. PT SHIFT SOUNDLY FOR MOST OF SHIFT. PT EAGER TO GO HOME. PT CURRENTLY AWAKE WATCHING TV AND IN GOOD SPIRITS. CALL LIGHT IN REACH.
[2019-08-11 08:08] LABS: BASOPHILS ABSOLUTE AUTO 0.03 K/mm3 (0.00-0.23); BASOPHILS PERCENT AUTO 1 % (0-2); EOSINOPHILS ABSOLUTE AUTO 0.18 K/mm3 (0.00-0.68); EOSINOPHILS PERCENT AUTO 3 % (0-6); Hematocrit 38.9 % (33.0-51.0); Hemoglobin 11.8 g/dL (11.5-16.0); IMMATURE GRAN ABSOLUTE AUTO 0.02 K/mm3 (0.00-0.10); IMMATURE GRAN PERCENT AUTO 0 % (0-1); LYMPHOCYTES ABSOLUTE AUTO 1.95 K/mm3 (0.84-5.20); LYMPHOCYTES PERCENT AUTO 32 % (21-46); MONOCYTES ABSOLUTE AUTO 0.38 K/mm3 (0.16-1.47); MONOCYTES PERCENT AUTO 6 % (4-13); Mean Corpuscular HGB Conc 30.3 g/dL (31.5-36.5); Mean Corpuscular Volume 82 fL (80-100); NEUTROPHILS ABSOLUTE AUTO 3.53 K/mm3 (1.96-9.15); NEUTROPHILS PERCENT AUTO 58 % (41-73); Platelet Count 304 K/mm3 (150-400); RDW Coefficient Variation 15.7 % (11.7-14.2); RDW Standard Deviation 47.4 fL (35.1-46.3); Red Blood Cell Count 4.72 M/mm3 (3.80-5.20); White Blood Cell Count 6.09 K/mm3 (4.00-11.30)
[2019-08-11] MEDS ORDERED: CLIN300 PO (14:21)
--- NOTE | 2019-08-11 15:59 | NUR ---
DC SUMMARY SAMANTHA DENIED PAIN THIS SHIFT. 1 PERSON ASSIST WITH GAIT BELT TO PIVOT TO BSC. RLE WOUNDS CLEANED AND REDRESSED, PICS IN CHART. ANTIBIOTIC FAXED TO [facility] SANCHE[facility], SHE HAS A FRIEND PICKING UP HER PRESCRIPTION AND WILL TAKE IT TODAY. [facility]ORT ARRIVING ANY MINUTE TO TAKE HER HOME BY WHEELCHAIR. CBGS REQUIRING INSULIN. CALLED , THEY ARE RESTARTING HER [facility]. PIV REMOVED, PAPERWORK GONE OVER, AWAITING TRANSPORT
== END 2019-08-11 16:10 | disposition home or self-care (01) | DRG 872 ==
LOC: ER 17:09 → MEDS 19:04 → PCU 08-08 00:31 → MEDS 08-09 11:08 → ENPENDDIS 08-11 14:14 → MEDS 08-11 16:10
PROVIDERS: Emergency Medicine; Internal Medicine; Pharmacist; ADMIT Internal Medicine
DX: A41.9 Sepsis, unspecified organism (principal); L03.116 Cellulitis of left lower limb; R65.20 Severe sepsis without septic shock; D63.8 Anemia in other chronic diseases classified elsewhere; E11.621 Type 2 diabetes mellitus with foot ulcer; I10 Essential (primary) hypertension; E87.6 Hypokalemia; E11.51 Type 2 diabetes mellitus with diabetic peripheral angiopathy without gangrene; L89.619 Pressure ulcer of right heel, unspecified stage; E78.5 Hyperlipidemia, unspecified; Z89.512 Acquired absence of left leg below knee; Z86.14 Personal history of Methicillin resistant Staphylococcus aureus infection; Z88.8 Allergy status to other drugs, medicaments and biological substances; Z79.82 Long term (current) use of aspirin; Z79.4 Long term (current) use of insulin; Z79.899 Other long term (current) drug therapy
CPT/HCPCS: 36415; 80048; 80053; 80202; 82947; 83605; 85025; 85027; 87040; 93005; 93010; 96374; 96375; 99284-25; A9270; J0690; J0692; J1650; J3370; J7030; J7050

== ENCOUNTER → 2019-10-25 | Outpatient (CLI) | payer OTHER ==
[~2019-10-25] MED LIST changes: +ASCO500 PO; +Potassium Chlo20 ME1 PO; +VITAMIN B-121000 MCG PO
== END ==
LOC: LAB 09:35 → LAB SHORT 09:35
DX: L97.412 Non-pressure chronic ulcer of right heel and midfoot with fat layer exposed (principal); L03.115 Cellulitis of right lower limb
CPT/HCPCS: 87070; 87205

== ENCOUNTER 2019-10-29 18:32 | Inpatient (IN) | payer OTHER ==
[~2019-10-29] VITALS: Ht 177.8 cm; Wt 103.0 kg
[~2019-10-29 18:32] MED LIST changes: -ASCO500 PO; -VITAMIN B-121000 MCG PO
[2019-10-29 19:32] LABS: BASOPHILS ABSOLUTE AUTO 0.07 K/mm3 (0.00-0.23); BASOPHILS PERCENT AUTO 1 % (0-2); EOSINOPHILS ABSOLUTE AUTO 0.38 K/mm3 (0.00-0.68); EOSINOPHILS PERCENT AUTO 4 % (0-6); Hematocrit 37.2 % (33.0-51.0); Hemoglobin 11.3 g/dL (11.5-16.0); IMMATURE GRAN ABSOLUTE AUTO 0.04 K/mm3 (0.00-0.10); IMMATURE GRAN PERCENT AUTO 0 % (0-1); LYMPHOCYTES ABSOLUTE AUTO 3.73 K/mm3 (0.84-5.20); LYMPHOCYTES PERCENT AUTO 36 % (21-46); MONOCYTES PERCENT AUTO 6 % (4-13); Mean Corpuscular HGB 23.9 pg (26.0-34.0); Mean Corpuscular HGB Conc 30.4 g/dL (31.5-36.5); Mean Corpuscular Volume 79 fL (80-100); Mean Platelet Volume 8.8 fL (9.1-12.4); NEUTROPHILS ABSOLUTE AUTO 5.58 K/mm3 (1.96-9.15); NEUTROPHILS PERCENT AUTO 54 % (41-73); Platelet Count 534 K/mm3 (150-400); RDW Coefficient Variation 15.3 % (11.7-14.2); RDW Standard Deviation 43.7 fL (35.1-46.3); Red Blood Cell Count 4.72 M/mm3 (3.80-5.20)
[2019-10-29 20:14] LABS: Alanine Aminotransfer (ALT/SGP 18 U/L (12-78); Albumin, Blood 2.9 g/dL (3.4-5.0); Albumin/Globulin Ratio 0.5 (0.8-1.8); Alk Phos 86 U/L (50-136); Anion Gap 8 mmol/L (6-16); Aspartate Aminotrans (AST/SGOT 13 U/L (12-37); Bilirubin, Total 0.2 mg/dL (0.1-1.0); Blood Urea Nitrogen 13 mg/dL (8-24); Bun/Creatinine Ratio 18.5 (12.0-20.0); CO2, Blood 26 mmol/L (21-32); Calcium, Blood 9.7 mg/dL (8.5-10.1); Chloride, Blood 97 mmol/L (98-108); Globulin, Blood 6.2 g/dL (2.2-4.0); Glomerular Filtration Rate >60 (60-); Glucose, Blood 485 mg/dL (70-99); Potassium, Blood 4.4 mmol/L (3.5-5.5); Sodium, Blood 131 mmol/L (136-145); Total Protein, Blood 9.1 g/dL (6.4-8.2)
[2019-10-30] MEDS ORDERED: VITAMIN B-121000 MCG PO (11:46)
[2019-10-30] MEDS ORDERED: ASCO500 PO (11:49)
--- NOTE | 2019-10-30 15:04 | NUR ---
Pt alert and oriented x3 with good affect. Pt gave me permission to historian research assistant with her care tomorrow 10/31/19.
--- NOTE | 2019-10-30 16:18 | NUR ---
PT gave verbal permission for care on 10-30-19 at 1600. PT is A&O X4.
--- NOTE | 2019-10-30 18:29 | NUR ---
IN TO SEE PATIENT.
--- NOTE | 2019-10-30 18:45 | NUR ---
ALERT. ORIENTED. HERE FOR EVAL OF WOUNDS TO RT FOOT WITH DR. SERRANO TALKING TO HER ABOUT PARTIAL FOOT AMP OR LEG AMP. TO SEE HER AGAIN TOMORROW AND IF PATIENT WANTS ORTHO CONSULT HE WILL ORDER TOMORROW. POSSIBLE SURGERY ON TUESDAY. ABLE TO MAKE NEEDS KNOWN. UNLABORED RESPIRATIONS. IS ABLE TO TRANSFER TO BSC WITH ONE PERSON ASSIST. MAHIN
--- NOTE | 2019-10-31 04:44 | NUR ---
SHIFT SUMMARY ADMITTED FOR RT FOOT CELLULITIS/OSTEOMYELITIS. FULL CODE. CONSULT DR SERRANO WILL ROUND ON PT TODAY TO DISCUSS POSSIBLE SURGICAL INTERVENTIONS. PT HAS EXISTING LFT LEG BKA, AND SOME RT TOES ALREADY AMPUTATED. DRESSINGS CHANGED BOTH AM AND PM SHIFT. RA, ADA DIET, ACHS, 1 ASSIST TO BSC. TELEMETRY IS MONITORING: NSR @ 70 BPM. NS INFUSING @ 150 ML/HR. HX: NEUROPATHY, HYPERLIPIDEMIA, HTN. CONTACT PRECAUTIONS FOR MRSA IN THE WOUND.
[2019-10-31 05:51] LABS: BASOPHILS ABSOLUTE AUTO 0.06 K/mm3 (0.00-0.23); BASOPHILS PERCENT AUTO 1 % (0-2); EOSINOPHILS ABSOLUTE AUTO 0.39 K/mm3 (0.00-0.68); EOSINOPHILS PERCENT AUTO 5 % (0-6); Hematocrit 31.2 % (33.0-51.0); Hemoglobin 9.3 g/dL (11.5-16.0); IMMATURE GRAN ABSOLUTE AUTO 0.03 K/mm3 (0.00-0.10); IMMATURE GRAN PERCENT AUTO 0 % (0-1); LYMPHOCYTES PERCENT AUTO 30 % (21-46); MONOCYTES ABSOLUTE AUTO 0.38 K/mm3 (0.16-1.47); MONOCYTES PERCENT AUTO 5 % (4-13); Mean Corpuscular HGB 23.7 pg (26.0-34.0); Mean Corpuscular HGB Conc 29.8 g/dL (31.5-36.5); Mean Corpuscular Volume 79 fL (80-100); Mean Platelet Volume 8.6 fL (9.1-12.4); NEUTROPHILS ABSOLUTE AUTO 4.17 K/mm3 (1.96-9.15); NEUTROPHILS PERCENT AUTO 58 % (41-73); Platelet Count 422 K/mm3 (150-400); RDW Standard Deviation 43.8 fL (35.1-46.3); Red Blood Cell Count 3.93 M/mm3 (3.80-5.20); White Blood Cell Count 7.23 K/mm3 (4.00-11.30)
[2019-10-31 06:17] LABS: Albumin, Blood 2.3 g/dL (3.4-5.0); Anion Gap 6 mmol/L (6-16); Blood Urea Nitrogen 8 mg/dL (8-24); Bun/Creatinine Ratio 12.3 (12.0-20.0); CO2, Blood 26 mmol/L (21-32); Calcium, Blood 8.7 mg/dL (8.5-10.1); Chloride, Blood 106 mmol/L (98-108); Creatinine, Blood 0.65 mg/dL (0.40-1.00); Glomerular Filtration Rate >60 (60-); Glucose, Blood 303 mg/dL (70-99); Phosphorus, Blood 2.5 mg/dL (2.5-4.9); Potassium, Blood 4.1 mmol/L (3.5-5.5); Sodium, Blood 138 mmol/L (136-145)
--- NOTE | 2019-10-31 10:03 | NUR ---
PER DR. JACKIE GARDINER TO ORDER IRON 325 PO DAILY, AND TO CHANGE LONG ACTING INSULIN TO COINSIDE WITH HOME MEDS OF DAILY
--- NOTE | 2019-10-31 12:17 | NUR ---
LEFT MESSAGE ON VOICE MAIL BLD SUGAR LITTLE OVER 300 , WONDERING IF WANT TO CHANGE SLIDING SCALE TO AC/HS? AWAITING ORDERS.
--- NOTE | 2019-10-31 12:59 | NUR ---
Patient is sitting up in bed and alert. Patient openly shares about her emotional struggles tied to her medical issues. Patient is very tearful and talks about her personal, spiritual and familial history. I listen empathically, normalize patient's experience, reinforce helpful attitudes and practices and provide pastoral litigation counsel and prayer. Patient responds well and displays evidence of increased peace. I will continue to remain available to patient and family.
--- NOTE | 2019-11-01 04:41 | NUR ---
SHIFT SUMMARY ADMITTED FOR RT FOOT CELLULITIS/OSTEOMYELITIS. FULL CODE. CONTACT PRECAUTIONS FOR MRSA IN WOUND. PLAN IS FOR RT BKA WITH CONSULT JESSICA. ADA DIET, HIGH SS, RA, 1 ASSIST TO BSC. NS IS INFUSING @ 150 ML/HR. A&O X4. HX: LFT BKA, SOME TOES ON RT FOOT ARE AMPUTATED, NEUROPATHY, HYPERLIPIDEMIA, HTN.
--- NOTE | 2019-11-01 05:46 | NUR ---
ATTEMPTED TO CALL CONSULT CONSULT HAS NO ANSWERING SERVICE AND OFFICE HOURS ARE 0800 TO 1700 HRS. I WILL PASS THIS INFORMATION ON TO DAY NURSE.
--- NOTE | 2019-11-01 12:48 | NUR ---
Patient is sitting up in bed and alert. Patient shares about how she is processing the thought of another amputation, about the family support she has and her hopes that she can get it over with soon because waiting is so hard. Patient talks about her plans to keep herself in a positive frame of mind after surgery and how her maricruz in God will help her with that. I listen empathically, explore coping skills and resources, and provide pastoral after school counselor and prayer. Patient responds well and shows signs of reduced stress. I will continue to remain available to patient and family.
--- NOTE | 2019-11-01 18:44 | NUR ---
PT AOX4 AND COOPERATIVE OF CARE. PT DENIED PAIN AND RESTED IN BED START OF SHIFT. PT WAS NPO IMMEDIATELY AND TAKEN FOR R BKA TODAY. HELD MED PT DID NOT WANT TO TAKE SUPPLEMENTS ON EMPTY STOMACH. NO DISTRESS NOTED. PT WAS TRANSERED TO 211 AND REPORT WAS CALLED TO RECIEVING RN AT 1815.
--- NOTE | 2019-11-01 19:30 | NUR ---
POST OP: REPORT RECIEVED FROM CONTAINER CRANE OPERATOR TAMI. PT TO UNIT AT ABOUT 1730. UPON ASSESSMENT PT IS A/O. SURGICAL SITE WNL, STUMP SOCK CDI. PULSE PALPABLE. ENCOURAGED DEEP BREATHING, ABLE TO WEAN PT TO 1L NC. TELE REAPPLIED AND VERIFIED, NSR. PT REPORTED PAIN AT R STUMP, MEDICATED PER EMAR. HTN NOTED, PT PAINFUL AT THE TIME, WILL RECHECK WHEN PAIN IS MANAGED. PT ABLE TO TAKE IN SOME LIQUIDS AND FOOD WITHOUT ANY NAUSEA. PT RESTING CURRENTLY. NO ACUTE SAFETY CONCERNS. REPORT GIVEN TO BRUNO FREEMAN RN.
[2019-11-02 05:18] LABS: BASOPHILS ABSOLUTE AUTO 0.04 K/mm3 (0.00-0.23); BASOPHILS PERCENT AUTO 0 % (0-2); EOSINOPHILS ABSOLUTE AUTO 0.01 K/mm3 (0.00-0.68); EOSINOPHILS PERCENT AUTO 0 % (0-6); Hematocrit 29.4 % (33.0-51.0); Hemoglobin 8.8 g/dL (11.5-16.0); IMMATURE GRAN ABSOLUTE AUTO 0.03 K/mm3 (0.00-0.10); IMMATURE GRAN PERCENT AUTO 0 % (0-1); LYMPHOCYTES ABSOLUTE AUTO 2.06 K/mm3 (0.84-5.20); LYMPHOCYTES PERCENT AUTO 21 % (21-46); MONOCYTES PERCENT AUTO 6 % (4-13); Mean Corpuscular HGB 23.9 pg (26.0-34.0); Mean Corpuscular HGB Conc 29.9 g/dL (31.5-36.5); Mean Corpuscular Volume 80 fL (80-100); Mean Platelet Volume 8.4 fL (9.1-12.4); NEUTROPHILS ABSOLUTE AUTO 7.22 K/mm3 (1.96-9.15); NEUTROPHILS PERCENT AUTO 73 % (41-73); Platelet Count 433 K/mm3 (150-400); RDW Coefficient Variation 15.5 % (11.7-14.2); RDW Standard Deviation 44.5 fL (35.1-46.3); Red Blood Cell Count 3.68 M/mm3 (3.80-5.20); White Blood Cell Count 9.96 K/mm3 (4.00-11.30)
--- NOTE | 2019-11-02 05:29 | NUR ---
SHIFT SUMMARY POD 1 R BKA [id number], VSS. STUMP SOCK IN PLACE, LEG ELEVATED ON ONE PILLOW. SOME SANGUINOUS DRAINAGE ON RIGHT SIDE OF STUMP SOCK. PT MEDICATED FOR PAIN WITH DILAUDID 0.5 X2 AND PO PAIN MEDS X2, PT STATES RELIEF. PT CONT OF VOID DURING SHIFT. TOLERATING PO WELL. PT REPOSITIONING IN BED FREQUENTLY DURING SHIFT.
[2019-11-02 05:38] LABS: Anion Gap 5 mmol/L (6-16); Blood Urea Nitrogen 12 mg/dL (8-24); CO2, Blood 26 mmol/L (21-32); Calcium, Blood 8.3 mg/dL (8.5-10.1); Chloride, Blood 105 mmol/L (98-108); Creatinine, Blood 0.63 mg/dL (0.40-1.00); Glomerular Filtration Rate >60 (60-); Glucose, Blood 264 mg/dL (70-99); Magnesium, Blood 1.9 mg/dL (1.6-2.4); Potassium, Blood 4.4 mmol/L (3.5-5.5); Sodium, Blood 136 mmol/L (136-145)
--- NOTE | 2019-11-02 07:36 | NUR ---
11/02/19 0736 Monique Sellers VERIFICATIONS: EDIT CHART.
--- NOTE | 2019-11-02 10:28 | NUR ---
9955 PT ASSISTED PATIENT OOB TO CHAIR
--- NOTE | 2019-11-02 11:13 | NUR ---
Patient is sitting on a chair and alert. Patient states that her surgery went well and she did well with PT this morning. Patient talks about her night, her pain and what she is looking forward to in the future. I listen empathically, reinforce helpful attitudes and practices and provide prayer. Patient responds well and shows signs of an elevated mood. I will continue to remain available to patient and family.
--- NOTE | 2019-11-02 18:08 | NUR ---
SUMMARY PT SUDDENLY TEARFUL AND REPORTS / RIGHT STUMP STABBIBG PAIN, PT REPOSITIONED AND MEDICATED FOR PAIN AND PROVIDED EDUCATION TO REQUEST PAIN MEDS PRN. RIGHT STUMB DRESSING WITH SHADOWING OF 4 X 5 INCH AREA OF SANGUINOUS DRAINAGE ON POSTERIOR DRESSING. PT STATES SHE IS PLANNING TO DISCHARGE TO SNF WITHIN 2-3 DAYS
[2019-11-03 04:44] LABS: Hematocrit 31.4 % (33.0-51.0); Hemoglobin 8.8 g/dL (11.5-16.0); Mean Corpuscular HGB 23.2 pg (26.0-34.0); Mean Platelet Volume 8.7 fL (9.1-12.4); Platelet Count 389 K/mm3 (150-400); RDW Coefficient Variation 15.9 % (11.7-14.2); RDW Standard Deviation 47.5 fL (35.1-46.3); Red Blood Cell Count 3.79 M/mm3 (3.80-5.20); White Blood Cell Count 7.36 K/mm3 (4.00-11.30)
[2019-11-03 05:00] LABS: Mean Corpuscular Volume 83 fL (80-100)
[2019-11-03 05:11] LABS: Anion Gap 5 mmol/L (6-16); Blood Urea Nitrogen 13 mg/dL (8-24); Bun/Creatinine Ratio 17.7 (12.0-20.0); CO2, Blood 25 mmol/L (21-32); Calcium, Blood 8.4 mg/dL (8.5-10.1); Chloride, Blood 111 mmol/L (98-108); Creatinine, Blood 0.73 mg/dL (0.40-1.00); Glomerular Filtration Rate >60 (60-); Glucose, Blood 145 mg/dL (70-99); Potassium, Blood 4.1 mmol/L (3.5-5.5); Sodium, Blood 141 mmol/L (136-145)
--- NOTE | 2019-11-03 05:12 | NUR ---
PATIENT HAS HAD GOOD PAIN CONTROL TONIGHT WITH DILAUDID, TORODOL AND TYLENOL. HER PAIN WAS ASSOCIATED WITH SOME BURNING AT THE INCISION ON HER RT BKA SHE HAS SLEPT MOST OF THE NIGHT. WILL GET HER TO THE [facility] BEFORE THE END OF SHIFT. NO ACUTE CHANGES.
--- NOTE | 2019-11-03 05:20 | NUR ---
RT STUMP WITH STUMP SOCK IN PLACE. BLEED THROUGH ON DRESSING IS UNCHANGED FROM THE BEGINNING OF THE SHIFT.
--- NOTE | 2019-11-03 16:41 | NUR ---
SHIFT SUMMARY PT A&OX4, VSS, TELE SR @ 96, CBGS REQ COVERAGE AT LUNCH, OTHERWISE CNI. POD2 R BKA W/ABD & STUMPSOCK ON. PAIN MANAGED WITH 5 MG OXY/TORADOL/TYLENOL, 0.5 MG DILAUDID GIVEN X1. ALFREDO PO, DENIES N&V. PT/OT; [place] [facility] [place] NO IV [place]ESS ORDER, DC TELE NEW ORDER. PT STARTED ON ORAL ABX. WILL REPORT TO ONCOMING NOC LEELA.
--- NOTE | 2019-11-04 01:52 | NUR ---
Patient was [place] [facility] [place]. during this transfer patient began having an increased level of pain in her rt stump. Her orders were changed during the day to reflect no IV access. PO pain medication given. Ice pack placed under the rt stump to help with pain,
--- NOTE | 2019-11-04 04:42 | NUR ---
Patient had no drainage from stump. ice and pain medication helped control the pain in rt stump. otherwise slept well. no acute changes.
--- NOTE | 2019-11-04 16:23 | NUR ---
SHIFT SUMMARY PT A&OX4, VSS, CBG AC/HS W/HIGH SLIDING SCALE. POD3 R BKA W/STUMP SOCK CDI. PAIN MANAGED WITH 5 MG OXY/TYLENOL/ICE. ALFREDO PO ADA DIET, DENIES N&V. REPOSITIONS SELF WELL IN BED; TRANSFERS SELF WITH TRANSFER BOARD TO AND BSC WITH SBA FOR SAFETY. VOIDING WELL. WILL REPORT TO ONCOMING BRUNO SWENSON.
--- NOTE | 2019-11-05 05:33 | NUR ---
SHIFT SUMMARY: SAMANTHA RESTED COMFORTABLY FOR SEVERAL HOURS. SHE DENIED THE NEED FOR PAIN MEDICATION AROUND 0200, BUT DOES NOT RECALL BEING AWOKEN AND QUERIED. SHE IS ALERT AND ORIENTED, ABLE TO MAKE HER NEEDS KNOWN. TOLERATING PO INTAKE WELL. SHE SELF-TRANSFERS WITH THE SLIDER BOARD TO THE BEDSIDE COMMODE. SHE USES HER CALL LIGHT APPROPRIATELY. SHE HAS BEEN PLEASANT AND COOPERATIVE THIS SHIFT, BUT DID BECOME TEARFUL WHEN SHE AWOKE IN PAIN. SHE IS LYING IN BED WITH HER CALL LIGHT IN REACH. WILL REPORT TO DAY SHIFT RN.
--- NOTE | 2019-11-05 12:43 | NUR ---
Patient tells me that she is adjusting well and ready to put in the work to remain mobile and retain her independence. We talk about staying positive and keeping positive people around her, about things she is looking forward to and about the help that she will utilize. I listen empathically, reinforce helpful attitudes and practices, encourage self-care and provide prayer. Patient responds well and shows signs of an elevated mood. I will continue to remain available to patient and family.
[2019-11-05] MEDS ORDERED: AMOCLA875 PO (13:12)
[2019-11-05] MEDS ORDERED: CYAN500 PO (13:15)
[2019-11-05] MEDS ORDERED: ROXYBOND5 MG PO (13:18)
[2019-11-05] MEDS ORDERED: BACTRIM DS TAB1 EACH PO (13:18)
[2019-11-05] MEDS ORDERED: COLACE100 MG PO (13:25)
[2019-11-05] MEDS ORDERED: FAMO20 PO (13:26)
[2019-11-05] MEDS ORDERED: SENN187 PO (13:27)
--- NOTE | 2019-11-05 15:08 | NUR ---
DISCHARGED REVIEWED DC PAPERWORK W/PT; VERBALIZED UNDERSTANDING. PROVIDED DRESSING CHANGES PER DR LOPEZ'S ORDERS. PT SIGNED DC PAPERWORK AND IS SITTING IN OWN WC, AWAITING [facility] TRANSPORT.
--- NOTE | 2019-11-05 15:21 | NUR ---
PT LEFT UNIT IN PERSONAL WC ACCOMPANIED BY TRANSPORT W/POSSESSIONS AND DC INSTRUCTIONS/WOUND CARE SUPPLIES.
== END 2019-11-05 15:22 | disposition home or self-care (01) | DRG 617 ==
LOC: ER 18:32 → MEDS 18:33 → ERHOLD 18:33 → MEDS 18:33 → ERHOLD 10-30 13:18 → MEDS 10-30 17:15 → ERHOLD 10-30 17:15 → MEDS 10-30 17:22 → SURS 11-01 17:44
PROVIDERS: Internal Medicine; Orthopaedic Surgery; Physician Assistant; ADMIT Internal Medicine
PROC: 0Y6H0Z2 Detachment at Right Lower Leg, Mid, Open Approach (ICD-10-PCS; principal; 2019-11-01 13:30)
DX: E11.69 Type 2 diabetes mellitus with other specified complication (principal); M86.9 Osteomyelitis, unspecified; E11.52 Type 2 diabetes mellitus with diabetic peripheral angiopathy with gangrene; I96 Gangrene, not elsewhere classified; Z79.4 Long term (current) use of insulin; E78.5 Hyperlipidemia, unspecified; D64.9 Anemia, unspecified; E11.40 Type 2 diabetes mellitus with diabetic neuropathy, unspecified; Z87.891 Personal history of nicotine dependence; Z79.82 Long term (current) use of aspirin
CPT/HCPCS: 36415; 73630; 80048; 80053; 80069; 82947; 83605; 83690; 83735; 85025; 85027; 87040; 87070; 87075; 87205; 88307; 96361; 96365; 96372; 97110; 97162; 97166; 97530; 97535; 99284-25; A9270; A9270-GY; J0171; J0696; J0735; J1100; J1170; J1650; J1885; J2250; J2270; J2405; J2543; J2704; J2795; J3370; J3480; J7030; J7120

== ENCOUNTER → 2024-06-25 | Outpatient (CLI) | payer OTHER ==
[~2024-06-25] MED LIST changes: +ASCO500 PO; +BACTRIM DS TAB1 EACH PO; +COLACE100 MG PO; +CYAN500 PO; +FAMO20 PO; +ROXYBOND5 MG PO; +VITAMIN B-121000 MCG PO
[2024-06-25 14:31] LABS: Bacterial Vaginosis PCR Negative (NEGATIVE); Candida Group, PCR NOT DETECTED (NOT DETECT)
[2024-06-25 14:40] LABS: Candida glabrata-krusei, PCR DETECTED (NOT DETECT)
[2024-07-03 11:33] LABS: HPV HIGH RISK BY TMA Not Detected; HPV SOURCE Cervical
== END ==
LOC: LAB 10:14 → LAB SHORT 10:14
PROVIDERS: Family Medicine
DX: Z01.419 Encounter for gynecological examination (general) (routine) without abnormal findings (principal)
CPT/HCPCS: 87481; 87661; 87801

== ENCOUNTER 2024-12-10 09:26 | Day surgery (SDC) | payer OTHER ==
[2024-12-10] VITALS (17 sets, daily range): BP systolic 110–170; BP diastolic 65–93
[~2024-12-10] VITALS: Ht 147.3 cm; Wt 99.9 kg
[~2024-12-10 09:26] MED LIST changes: +AMLO10 PO; +ATOR10 PO; +Lactated Ringer's 1,000 ML IV SCH; +STEGLATRO15 MG PO
[2024-12-10] MEDS ORDERED: INSULIN GL100 UNIT/2 SC (10:43)
--- NOTE | 2024-12-10 11:01 | NUR ---
History, Chart, Medications and Allergies reviewed before start of procedure. Patient confirms NPO status and agrees with scheduled surgery. Patient was transfered into [facility] via [facility] due to bilat bleow knee amputation. Weight was obtained with w/c scale and height was measured with measuring tape while patient lay in [facility]. [facility]
[2024-12-10] MEDS ORDERED: propofoL 40 ML IV ONE (11:07)
--- NOTE | 2024-12-10 11:25 | NUR ---
12/10/24 1125 Trevor Ortiz CONFIRMED AND REVIEWED H&P, MEDCICATIONS, ALLERGIES, MEDICAL HISTORY, RESPIRATORY HISTORY, VITAL SIGNS, 3-LEAD EKG, CONSENTS, AND PHYSICIAN ORDERS. PATIENT CONFIRMS NPO STATUS AND AGREES WITH SCHEDULED PROCEDURE. MONITOR INTACT WITH CONTINUOUS PULSE OXIMETRY, CAPNOGRAPHY, 3-LEAD EKG, INTERMITTENT BP. SUPPLEMENTAL O2 TO BE TITRATED THROUGHOUT PROCEDURE TO MAINTAIN O2 SATURATION ABOVE 90%. PATIENT DETERMINED TO BE ASA APPROPRIATE FOR PROPOFOL SEDATION PRIOR TO START OF PROCEDURE BY DR. FOSTER
--- NOTE | 2024-12-10 12:25 | NUR ---
Discharge instructions reviewed with patient. Patient verbalizes understanding. Copy given to patient to take home. Patient States Post-Procedure ride home has been arranged. Discharged via personal wheelchair to [facility] for ride home.
== END 2024-12-10 12:18 | disposition home or self-care (01) ==
LOC: ORSCMMR 09:26 → ORD 10:30 → ORSCMMR 12:18
PROVIDERS: Internal Medicine Gastroenterology
PROC: 0DBK8ZX Excision of Ascending Colon, Via Natural or Artificial Opening Endoscopic, Diagnostic (ICD-10-PCS; principal; 2024-12-10 10:30)
DX: Z12.11 Encounter for screening for malignant neoplasm of colon (principal); Z86.0101 Personal history of adenomatous and serrated colon polyps; D12.2 Benign neoplasm of ascending colon; K64.8 Other hemorrhoids; I10 Essential (primary) hypertension; E78.00 Pure hypercholesterolemia, unspecified; E11.610 Type 2 diabetes mellitus with diabetic neuropathic arthropathy; Z79.4 Long term (current) use of insulin; Z79.84 Long term (current) use of oral hypoglycemic drugs; Z79.899 Other long term (current) drug therapy; Z79.82 Long term (current) use of aspirin
CPT/HCPCS: 82947; 88305; J2704; J7120